=== PATIENT | female | born 1950 | race Caucasian/White ===

== ENCOUNTER → 2024-07-23 | Outpatient (CLI) | payer MEDICARE, MEDICAID, SELFPAY ==
--- NOTE | 2024-07-23 13:45 | XR_ITS ---
Examination: Carotid arterial duplex scan, ultrasound. Date and time of exam: July 23, 2024 1326 hours INDICATIONS: Dizziness and syncopal episodes beginning one month ago Technique: Multiple sonographic images have been obtained of the carotid arteries and vertebral arteries, B-mode/grayscale imaging and Doppler spectral analysis and color flow Peak systolic and diastolic velocities have been recorded. Systolic diastolic ratios have been calculated. Findings: Right peak systolic velocities: Distal internal carotid artery peak systolic velocity is 0.8 M/sec Proximal internal carotid artery peak systolic velocity is 0.6 M/sec Carotid bifurcation peak systolic velocity is 0.9 M/sec External carotid artery peak systolic velocity is 1.2 M/sec Vertebral artery flow is antegrade. Left peak systolic velocities: Distal internal carotid artery peak systolic velocity is 0.9 M/sec Proximal internal carotid artery peak systolic velocity is 0.7 M/sec Carotid bifurcation peak systolic velocity is 0.7 M/sec External carotid artery peak systolic velocity is 1.1 M/sec Vertebral artery flow is antegrade Doppler waveform analysis demonstrates no spectral broadening Impression: Right internal carotid artery demonstrates 0-10% stenosis. Left internal carotid artery demonstrates 0-10% stenosis.
== END | disposition home or self-care (01) ==
LOC: CDIM 13:09
PROVIDERS: Referring Provider Physician Assistant Medical; Visit Provider Physician Assistant Medical
DX: R55 Syncope and collapse (principal)
CPT/HCPCS: 93880

== ENCOUNTER → 2024-07-31 | Outpatient (CLI) | payer MEDICARE, MEDICAID, SELFPAY ==
--- NOTE | 2024-07-31 12:00 | XR_ITS ---
Examination: Bone densitometry Date and time of exam:July 31, 2024 1133 hours INDICATIONS: Menopause age 51 smoking history 56 years vitamin D 3 years Technique: Lumbar spine and hip total bone mineralization values of an calculated. Peak reference and age match control results have been displayed. Findings: Lumbar spine total bone mineralization is0.950 gm/cm2. This is 0.9 standard deviations below peak reference. This is 1.5 standard deviations above age-matched controls. Hip total bone mineralization is 0.823 gm/cm2 This is 1.0 standard deviations below peak reference. This is 0.8 standard deviations above age-matched controls Impression: There is normal mineralization based on lumbar spine measurements. There is osteopenia based on hip measurements Lumbar mineralization is increase 0.7% compared with September 03, 2018 Hip mineralization is increase 0.3% compared with September 03, 2018
== END | disposition home or self-care (01) ==
LOC: CDIM 11:35
PROVIDERS: PCP Physician Assistant Medical; Referring Provider Physician Assistant Medical; Visit Provider Physician Assistant Medical
DX: Z13.820 Encounter for screening for osteoporosis (principal); M85.88 Other specified disorders of bone density and structure, other site
CPT/HCPCS: 77080

== ENCOUNTER 2024-08-02 17:16 | Inpatient (IN) | payer MEDICARE, MEDICAID, SELFPAY ==
[2024-08-02] VITALS (16 sets, daily range): BP systolic 99–182; BP diastolic 61–97; PULSE 62–88; RESP 13–97; TEMP 36.3–37.1; O2SAT 81–98; BMI 28.6
--- NOTE | 2024-08-02 17:36 | XR_ITS ---
Examination: CTA carotids with intravenous contrast CTA brain, head with intravenous contrast. 2-D sagittal, coronal reconstructions. 3-D reconstructions. Exam date and time: August 02, 2024 1754 hrs. Indications: Stroke alert, onset focal neurologic deficit today CTDI: vol (mGy) 24.3 DLP: (mGycm) 870 Technique: Multiple CTA axial brain, head carotid images post intravenous contrast injection 100 cc, [id number]. 2-D sagittal, coronal reconstructions. 3-D reconstructions, 3-D post processing including vascular maximum intensity projection images. Low dose protocols were performed. One or more of the following dose reduction techniques were used; automated exposure control, adjustment of the mA and/or KV according to patient size, use of iterative reconstruction technique. Findings: No significant stenoses common carotid arteries carotid bifurcations or internal carotid arteries Dominant right vertebral artery with no critical stenoses No cerebral large vessel arterial occlusions or thrombus Impression: No significant neck arterial stenoses No cerebral large vessel arterial occlusions or thrombus
--- NOTE | 2024-08-02 17:36 | EKG_ITS ---
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
--- NOTE | 2024-08-02 17:36 | XR_ITS ---
Examination: CT brain head without contrast. 2-D sagittal coronal reconstructions Date and time of exam:August 02, 2024 1746 hrs. Indications: Stroke alert, onset focal neurologic deficit today CTDI: vol (mGy):46.6 DLP: (mGycm):938 Technique: Multiple CT axial sections of the brain have been obtained, 5 mm slice thickness. Contrast has not been administered. 2-D sagittal, coronal reconstructions have been obtained Low dose protocols were performed. One or more of the following dose reduction techniques were used; automated exposure control, adjustment of the mA and/or KV according to patient size, use of iterative reconstruction technique. Findings: No significant ventricular enlargement. Intra-axial or extra-axial hemorrhage density is not seen. No mass effect or midline shift Basal cisterns are not remarkable. Fourth ventricle is midline. Cranial vault intact. Impression: Negative for acute hemorrhage, mass effect or midline shift
[2024-08-02 17:47] LABS: Basophils # (Auto) 0.1 Thou/mm3 (0.0-0.2); Basophils % (Auto) 1 % (0-2.5); Eosinophils # (Auto) 1.7 Thou/mm3 (0.0-0.5); Eosinophils % (Auto) 16 % (0-10); Hematocrit 42.3 % (36.0-46.0); Hemoglobin 14.1 g/dL (12.0-16.0); Immature Granulocytes % (Auto) 0 % (0-0); Immature Granulocytes Auto 0.03 Thou/mm3 (0.00-0.00); Lymphocytes # (Auto) 3.5 Thou/mm3 (1.0-4.8); Lymphocytes % (Auto) 33 % (10-50); Mean Corpuscular HGB Conc 33.3 g/dl (31.0-37.0); Mean Corpuscular Hemoglobin 30.5 pg (25.0-35.0); Mean Corpuscular Volume 91 fL (80-100); Monocytes # (Auto) 0.5 Thou/mm3 (0.0-0.8); Monocytes % (Auto) 5 % (0-12); Neutrophils # (Auto) 4.8 Thou/mm3 (1.8-7.7); Neutrophils % (Auto) 45 % (37-80); Nucleated Red Blood Cell % 0 /100 WBC (0); Platelet Count 246 Thou/mm3 (140-440); RDW Standard Deviation 47.7 fL (36.4-46.3); Red Blood Count 4.63 Miln/mm3 (4.00-5.20); White Blood Count 10.7 Thou/mm3 (3.6-11.0)
--- NOTE | 2024-08-02 17:51 | EDNOTE_ITS ---
<Statement entered by Shania Minaya MD - 08/13/24 17:39> As co-signing physician, I was present and available for consult prn. I concur with the plan and care as documented by the midlevel provider. ED General RME/HPI General Chief complaint: Syncope / Near Syncope Stated complaint: FELT LIKE BLACKED OUT AND WENT TO GROUND, [facility] Time Seen by Provider: 08/02/24 17:44 Arrival date/time: 08/02/24 17:16 RME / HPI RME / HPI narrative: 74-year-old female patient with significant history of hypertension, hypothyroidism, was brought in by friend for evaluation regarding near syncope. Patient was going to the bathroom, was about to put her teeth, DNR, and suddenly developed sudden onset of right-sided headache, and almost collapsed. Called a friend and was noted to have a slight slurring of speech. Incident happened about 1 hour prior to ER visit. Related Data Home Medications ?Medication ?Instructions ?Recorded ?Confirmed lisinopril 10 mg tablet 5 mg PO DAILY 07/20/18 02/27/23 omeprazole 40 mg capsule,delayed 20 mg PO QDAY 07/20/18 02/27/23 release atorvastatin 40 mg tablet 80 mg PO QDAY 11/24/20 02/27/23 levothyroxine 25 mcg capsule 12.5 mcg PO QDAY 01/18/23 02/27/23 omega-3 fatty acids-fish oil 684 1 cap PO BID 01/18/23 02/27/23 mg-1,200 mg capsule,delayed release aspirin 81 mg tablet 81 mg PO QDAY 01/19/23 02/27/23 cholecalciferol (vitamin D3) 25 25 mcg PO QDAY 01/19/23 02/27/23 mcg (1,000 unit) chewable tablet (Vitamin D3) cranberry 1,000 mg capsule 1,200 mg PO QDAY 01/19/23 02/27/23 esomeprazole magnesium 20 mg 20 mg PO QDAY 01/19/23 02/27/23 capsule,delayed release Previous Rx's ?Medication ?Instructions ?Recorded ciprofloxacin HCl 500 mg tablet 500 mg PO BID #10 tabs 02/07/23 (Cipro) metronidazole 500 mg tablet 500 mg PO BID #10 tabs 02/07/23 Allergies Allergy/AdvReac Type Severity Reaction Status Date / Time nitrofurantoin Allergy Severe Diarrhea Verified 10/02/23 10:04 [From Macrobid] Penicillins Allergy Severe HIVES Verified 10/02/23 10:04 Sulfa (Sulfonamide Allergy Severe ABD PAIN Verified 10/02/23 10:04 Antibiotics) Review of Systems Review of Systems Narrative Review of Systems: Review of system reviewed and within normal limits except mentioned in HPI ED Exam Narrative Physical exam: VITAL SIGNS: Reviewed. GENERAL APPEARANCE: Alert and interactive, follows commands, no acute distress, HEAD AND FACE: Non-traumatic. ENT: PERRL, pink conjunctivitis, eyelid no trauma, Mucous membrane moist. NECK: Supple, nontender, no nuchal rigidity. CHEST: No tenderness, no crepitus, no paradoxical movement, no retractions. LUNGS: Clear, well ventilated, symmetric, no rales, no wheezing, no ronchi, no stridor, good breath sounds bilaterally. HEART: Regular rate, regular rhythm, no murmur, no gallops. ABDOMEN: Soft, positive bowel sounds, nondistended, no guarding, nontender, no rebound, no masses, RECTAL: Deferred. GENITAL: Deferred. NEUROLOGICAL: Gross motor function intact sensory function intact, Appropriate for age. MUSCULOSKELETAL: low back nontender, full range of motion. EXTREMITIES: Nontender, full range of motion. SKIN: Color pink, dry, no rash, no lacerations, no abrasions, no contusions. LYMPHATICS: Deferred. 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 NOW Care 08/02/24 17:36 Active Continuous Pulse Oximetry NOW Care 08/02/24 17:36 Completed Decision to Admit X1 Care 08/02/24 19:48 Active EKG (ED ONLY) *Do not use* NOW Care 08/02/24 17:36 Completed In and Out Catheter NEEDED Care 08/02/24 17:36 Active Insert IV NOW Care 08/02/24 17:36 Active NIH Stroke Scale now Care 08/02/24 17:36 Active NPO NOW Care 08/02/24 17:36 Active Nurse Swallow Screen x1 Care 08/02/24 17:36 Active Consult to Neurology / Tele-Neurology Routine Cons 08/02/24 17:[address] angio stroke protocol Stat Exams 08/02/24 17:[address] stroke protocol Stat Exams 08/02/24 17:36 Completed EKG (ED Only) Stat Exams 08/02/24 17:36 Draft CBC Stat Lab 08/02/24 17:28 Completed Comprehensive Metabolic Panel Stat Lab 08/02/24 17:28 Completed Drug Screen,Urine Stat Lab 08/02/24 18:42 Completed HCG Titer if Positive Stat Lab 08/02/24 17:28 Completed Magnesium Stat Lab 08/02/24 17:28 Completed Partial Thromboplastin Time Stat Lab 08/02/24 17:28 Completed Prothrombin Time with INR Stat Lab 08/02/24 17:28 Completed Troponin I Stat Lab 08/02/24 17:28 Completed Urinalysis Stat Lab 08/02/24 18:42 Completed Urine Culture Stat Lab 08/02/24 18:42 Received Aspirin Med 08/02/24 18:11 Discontinued 325 mg PO X1 ONE Ondansetron Inj [Zofran Inj] Med 08/02/24 17:36 Active 4 mg IV Q4HR PRN Oxygen Delivery NOW RT 08/02/24 17:36 Active Vital Signs Vital signs: Vital Signs Temperature 98.1 F 08/02/24 17:30 Pulse Rate 87 08/02/24 17:30 Respiratory Rate 18 08/02/24 17:30 Blood Pressure 114/62 08/02/24 17:30 Pulse Oximetry (%) 98 08/02/24 17:30 Oxygen Delivery Method Room Air 08/02/24 17:30 [facility] Patient data External records reviewed:: None Clinical information provided by:: patient Social determinants that could affect healthcare access:: none Patient has the following chronic illnesses:: Hypertension How is presenting disease/condition affected by chronic disease/condition?: e xacerbated by Evaluation data The following diagnostics were reviewed and interpreted by me:: lab results Lab and/or radiology exams considered but not ordered:: None Interpretation Summary: Laboratory workup all came back unremarkable. CT scan of the head came back unremarkable CT angiogram of the head and neck also came back unremarkable. Medications Medications considered but not ordered:: None Medication administrations:: Medication Administration History Ondansetron HCl (Ondansetron Inj 2 Mg/Ml Inj 2 Ml) 4 mg IV Q4HR PRN PRN Reason: NAUSEA OR VOMITING Stop: 09/01/24 17:35 Discontinued Medications Aspirin (Aspirin 325 Mg Tablet) 325 mg PO X1 ONE Stop: 08/02/24 18:12 Aspirin Zofran Consultations Consultation(s) initiated? (list below): No Consultation #1 (Physician, Specialty, Details): None Diagnosis Differential Diagnosis ED Complaint MDM: Strokelike symptoms, near-syncope, vasovagal syncope, Most likely diagnosis given after review of the tests above:: Strokelike symptoms Admission Indicated Admission indicated?: indicated Explain why admission is indicated or not indicated:: Patient is to be admitted for further management. Admission Request Was there a request for admission?: Yes Admission Attestation Admission request attestation: Discussed case with [Dr Cobian] from Hospitalist service regarding admission. Discussed patients ED course, exam findings, labs, and radiology results. The Hospitalist [agrees ] to accept the patient for admission. Disposition Plan Disposition Plan: Admit Medical Decision Making MDM Narrative MDM Narrative: 74-year-old female patient with significant history of hypertension, hypothyroidism, was brought in by friend for evaluation regarding near syncope. Patient was going to the bathroom, was about to put her teeth, DNR, and suddenly developed sudden onset of right-sided headache, and almost collapsed. Called a friend and was noted to have a slight slurring of speech. Incident happened about 1 hour prior to ER visit. Stroke alert was initiated right away. On initial evaluation Spoke with teleneurologist who recommended admission for further workup for stroke. Recommendation is aspirin [address] Spoke with Dr. Cobian , hospitalist, who admitted the patient. Differential Diagnosis Differential Diagnosis: Strokelike symptoms, near-syncope, vasovagal syncope, Lab Data 08/02/24 17:28 08/02/24 17:28 Labs: Lab Results 08/02/24 08/02/24 Range/Units 17:28 18:42 WBC 10.7 (3.6-11.0) Thou/mm3 RBC 4.63 (4.00-5.20) Miln/mm3 Hgb 14.1 (12.0-16.0) g/dL Hct 42.3 (36.0-46.0) % MCV 91 (80-100) fL MCH 30.5 (25.0-35.0) pg MCHC 33.3 (31.0-37.0) g/dl RDW Std Deviation 47.7 H (36.4-46.3) fL Plt Count 246 (140-440) Thou/mm3 Neut % (Auto) 45 (37-80) % Lymph % (Auto) 33 (10-50) % [place] % (Auto) 5 (0-12) % Eos % (Auto) 16 H (0-10) % Baso % (Auto) 1 (0-2.5) % Neut # (Auto) 4.8 (1.8-7.7) Thou/mm3 Lymph # (Auto) 3.5 (1.0-4.8) Thou/mm3 [place] # (Auto) 0.5 (0.0-0.8) Thou/mm3 Eos # (Auto) 1.7 H (0.0-0.5) Thou/mm3 Baso # (Auto) 0.1 (0.0-0.2) Thou/mm3 Immature Gran # (Auto) 0.03 H (0.00-0.00) Thou/mm3 Absolute Nucleated RBC 0.00 (0.00-0.00) Thou/mm3 Immature Gran % 0 (0-0) % Nucleated RBC % 0 (0) /100 WBC PT 10.8 (9.0-12.2) Seconds INR 1.0 (0.9-1.3) APTT 27.1 (22.0-36.0) Seconds Sodium 139 (136-145) mMol/L Potassium 3.9 (3.4-5.1) mMol/L Chloride 104 (98-107) mMol/L Carbon Dioxide 28.0 (20.0-31.0) mMol/L Anion Gap 7 (7-16) BUN 13 (9-23) mg/dL Creatinine 1.2 (0.6-1.3) mg/dL Estim Creat Clear Calc 33.1 L (>60) mL/min eGFR 47 L (60 - ) See Note BUN/Creatinine Ratio 11 L (12-20) Ratio Glucose 96 (74-106) mg/dL Calculated Osmolality 277 (275-295) Calcium 10.0 (8.3-10.6) mg/dL Corrected Calcium 10.0 (8.5-10.1) mg/dL Magnesium 1.8 (1.6-2.6) mg/dL Total Bilirubin 0.4 (0.3-1.2) mg/dL AST 26 (0-34) U/L ALT 28 (10-49) U/L Alkaline Phosphatase 98 (46-116) U/L Troponin I < 0.020 (0.0-0.045) ng/mL Total Protein 7.6 (5.7-8.2) gm/dL Albumin 4.9 H (3.4-4.8) gm/dL Globulin 2.7 (2.3-3.5) gm/dL Albumin/Globulin Ratio 1.8 (1.2-2.2) Ur Collection Type Clean Catch Urine Color Colorless A (Lt Yel-Yel) Urine Clarity Clear (Clear/Hazy) Urine pH 6.0 (5.0-7.0) Ur Specific [place] 1.020 (1.001-1.035) Urine Protein Negative (Neg - Trace) Urine Glucose (UA) Negative (Negative) Urine Ketones Negative (Negative) Urine Blood Negative (Negative) Urine Nitrite Negative (Negative) Urine Bilirubin Negative (Negative) Urine Urobilinogen (Auto) Negative (0.0-1.0) mg/dL Ur Leukocyte Esterase Positive (Negative) Urine RBC 3 (0-3) /hpf Urine WBC 21 H (0-5) /hpf Ur Squamous Epith Cells 3 (0-5) /hpf Urine Bacteria None (None) Urine Opiates Screen Negative (Negative) Urine Fentanyl Screen Negative (Negative) Ur Barbiturates Screen Negative (Negative) U Amphetamin/Meth Scrn Negative (Negative) U Benzodiazepines Scrn Negative (Negative) U Cocaine Metab Screen Negative (Negative) U Marijuana (THC) Screen Negative (Negative) HCG (Qual) Negative Discharge Plan Plan Patient Disposition: Admit Acute Care w/in Hospital Prescriptions/Referrals Prescriptions/Med Rec: No Action lisinopril 10 mg tablet 5 mg PO DAILY omeprazole 40 mg capsule,delayed release(DR/EC) 20 mg PO QDAY atorvastatin 40 mg Tablet 80 mg PO QDAY [place] 3 Fish Oil 684-1,200 mg Capsule,Delayed Release(Dr/Ec) 1 cap PO BID levothyroxine 25 mcg Capsule 12.5 mcg PO QDAY aspirin 81 mg Tablet 81 mg PO QDAY esomeprazole magnesium 20 mg Capsule,Delayed Release(Dr/Ec) 20 mg PO QDAY cranberry 1,000 mg Capsule 1,200 mg PO QDAY Rx Instructions: administer with meals cholecalciferol (vitamin D3) [Vitamin D3] 25 mcg (1,000 unit) Tablet,Chewable 25 mcg PO QDAY ciprofloxacin HCl [Cipro] 500 mg tablet 500 mg PO BID Qty: 10 0RF metronidazole 500 mg tablet 500 mg PO BID Qty: 10 0RF Referrals: Esther Cha PA-C [Primary Care Provider] - In 1 week Problem List Clinical Impression: Stroke-like symptoms Patient/Caregiver Discharge Instructions Print Language: Luxembourger Stand Alone Forms: Taty Award Info., Patient Portal Info Letter
[2024-08-02 18:08] LABS: Partial Thromboplastin Time 27.1 Seconds (22.0-36.0); Prothrombin Time 10.8 Seconds (9.0-12.2)
--- NOTE | 2024-08-02 18:08 | PD.TNEURO ---
Tele Neuro Consultation Consultation Date 08/02/24 Most Recent Vital Signs Last Vital Signs Temp 97.4 F 08/02/24 17:31 Pulse 83 08/02/24 17:31 Resp 17 08/02/24 17:31 BP 182/91 H 08/02/24 17:31 Pulse Ox 98 08/02/24 17:31 O2 Del Method Room Air 08/02/24 17:31 Laboratory-Coagulation Panel PT 10.8 Seconds (9.0-12.2) 08/02/24 17:28 INR 1.0 (0.9-1.3) 08/02/24 17:28 APTT 27.1 Seconds (22.0-36.0) 08/02/24 17:28 Consultation Narrative [facility] Tele[facility] Patient Name:???eliot perez Date of :???1950 Identification Number:??? Date of Service:???08/02/2024 17:29:44 Diagnosis:?R55 - Syncope (blackout, fainting, vasovagal attack) Impression: ?74F with PMHx hypothyroidism, TIA, HLD, presents due to near syncopal episode while putting her teeth in. She tells me she got her teeth in, and then could feel herself going down, things going black, she grabbed the sink. Finally the sensation went away, afterwards she had the shakes really badly. Then the right side of her head went numb, this is still present but comes and goes. No involvement of any extremity (numbness nor weakness), she does think her speech was slurred. Speech is better now. This has never happened to her before. States she does not take aspirin. On exam she does not DDX includes orthostatic hypotension, secondary headache, TIA, acute ischemic stroke. Our recommendations are outlined below. Recommendations: ? Stroke/Telemetry Floor ? Neuro Checks ? Bedside Swallow Eval ? DVT Prophylaxis ? Head of Bed 30 Degrees ? Euglycemia and Avoid Hyperthermia (PRN Acetaminophen) ? Initiate or continue Aspirin 325 MG daily ?MR brain w/w/o; orthostatic vital signs Sign Out: ? Discussed with Emergency Department Provider Advanced Imaging:CTA Head and Neck Completed. LVO:No Patient in not a candidate for LAINE Metrics: Last Known Well: 08/02/2024 16:40:00 Dispatch Time: 08/02/2024 17:29:44 Arrival Time: 08/02/2024 17:16:00 Initial Response Time: 08/02/2024 17:34:00Symptoms: near syncopal episode, R face numbness, slurred speech. Initial patient interaction: 08/02/2024 17:46:06 NIHSS Assessment Completed: 08/02/2024 17:52:52Patient is not a candidate for Thrombolytic. Thrombolytic Medical Decision: 08/02/2024 17:52:54Patient was not deemed candidate for Thrombolytic because of following reasons: Stroke severity too mild (non-disabling) . I personally Reviewed the CT Head and it Showed no acute changes Primary Provider Notified of Diagnostic Impression and Management Plan on: 08/02/2024 18:08:18 History of Present Illness:Patient is a 74 year old Female. Patient was brought by private transportation with symptoms of near syncopal episode, R face numbness, slurred speech. 74F with PMHx hypothyroidism, TIA, HLD, presents due to near syncopal episode while putting her teeth in. She tells me she got her teeth in, and then could feel herself going down, things going black, she grabbed the sink. Finally the sensation went away, afterwards she had the shakes really badly. Then the right side of her head went numb, this is still present but comes and goes. No involvement of any extremity (numbness nor weakness), she does think her speech was slurred. Speech is better now. This has never happened to her before. States she does not take aspirin. ? Past Medical History: ?Hyperlipidemia ?There is no history of Stroke Medications: No Anticoagulant use? No Antiplatelet use Reviewed EMR for current medications Allergies:? Reviewed Social History: Smoking: Yes Family History: There is no family history of premature cerebrovascular disease pertinent to this consultation ROS : 14 Points Review of Systems was performed and was negative except mentioned in HPI. Past Surgical History: There Is No Surgical History Contributory To Today?s Visit ? Examination: BP(114/62),?Pulse(77), 1A: Level of Consciousness - Alert; keenly responsive?+ 0 1B: Ask Month and Age - Both Questions Right?+ 0 1C: Blink Eyes & Squeeze Hands - Performs Both Tasks?+ 0 2: Test Horizontal Extraocular Movements - Normal?+ 0 3: Test Visual [place] - No Visual Loss?+ 0 4: Test Facial Palsy (Use Grimace if Obtunded) - Normal symmetry?+ 0 5A: Test Left Arm Motor Drift - No Drift for 10 Seconds?+ 0 5B: Test Right Arm Motor Drift - No Drift for 10 Seconds?+ 0 6A: Test Left Leg Motor Drift - No Drift for 5 Seconds?+ 0 6B: Test Right Leg Motor Drift - No Drift for 5 Seconds?+ 0 7: Test Limb Ataxia (FNF/Heel-[place]man) - No Ataxia?+ 0 8: Test Sensation - Normal; No sensory loss?+ 0 9: Test Language/Aphasia - Normal; No aphasia?+ 0 10: Test Dysarthria - Normal?+ 0 11: Test Extinction/Inattention - No abnormality?+ 0 NIHSS Score:?0 Pre-Morbid Modified [place] Scale:2 Points = Slight disability; unable to carry out all previous activities, but able to look after own affairs without assistance Spoke with :?ED physician This consult was conducted in real time using interactive audio and video technology. Patient was informed of the technology being used for this visit and agreed to proceed. Patient located in hospital and provider located at home/office setting. Patient is being evaluated for possible acute neurologic impairment and high probability of imminent or life-threatening deterioration. I spent total of 35 minutes providing care to this patient, including time for face to face visit via telemedicine, review of medical records, imaging studies and discussion of findings with providers, the patient and/or family. Dr Rose Loza [facility] For Inpatient follow-up with [facility] physician please call [facility] at . As we are not an outpatient service for any post hospital discharge needs please contact the hospital for assistance. If you have any questions for the [facility] physicians or need to reconsult for clinical or diagnostic changes please contact us via [facility] at .
[2024-08-02 18:12] LABS: HCG Titer if Positive Negative
[2024-08-02 18:13] LABS: Troponin I < 0.020 ng/mL (0.0-0.045)
[2024-08-02 18:14] LABS: Alanine Aminotransferase 28 U/L (10-49); Albumin, Serum 4.9 gm/dL (3.4-4.8); Albumin/Globulin Ratio 1.8 (1.2-2.2); Alkaline Phosphatase 98 U/L (46-116); Anion Gap 7 (7-16); Aspartate Amino Transferase 26 U/L (0-34); BUN/Creatinine Ratio 11 Ratio (12-20); Bilirubin,Total 0.4 mg/dL (0.3-1.2); Blood Urea Nitrogen 13 mg/dL (9-23); Chloride 104 mMol/L (98-107); Creatinine (Component) 1.2 mg/dL (0.6-1.3); Estimated Creatinine Clearance 33.1 mL/min (>60); Globulin 2.7 gm/dL (2.3-3.5); Glucose 96 mg/dL (74-106); Magnesium 1.8 mg/dL (1.6-2.6); Osmolality,Calculated 277 (275-295); Potassium 3.9 mMol/L (3.4-5.1); Sodium 139 mMol/L (136-145); Total Protein 7.6 gm/dL (5.7-8.2); eGFR 47 See Note
[2024-08-02 18:58] LABS: Collection Type, Urine Clean Catch
[2024-08-02 19:02] LABS: Bilirubin,Urine Negative (Negative); Blood,Urine Negative (Negative); Clarity,Urine Clear (Clear/Hazy); Color,Urine Colorless (Lt Yel-Yel); Glucose, Urine Negative (Negative); Ketones,Urine Negative (Negative); Leukocyte Esterase,Urine Positive (Negative); Nitrite,Urine Negative (Negative); Protein,Urine Negative (Neg - Trace); RBC,Urine 3 /hpf (0-3); Squamous Epithelial Cell,Urine 3 /hpf (0-5); Urobilinogen,Urine Negative mg/dL (0.0-1.0); WBC,Urine 21 /hpf (0-5)
[2024-08-02 19:07] LABS: Amphetamine/Methamp Scrn,U Negative (Negative); Barbiturate Screen,Urine Negative (Negative); Benzodiazepines Screen,Urine Negative (Negative); Benzoylecgonine Screen, Ur Negative (Negative); Fentanyl Screen,Urine Negative (Negative); Opiate Screen,Urine Negative (Negative); THC Screen,Urine Negative (Negative)
--- NOTE | 2024-08-02 19:31 | PRELIM_ITS ---
CT angiogram of the head and neck with intravenous contrast (axial sections with sagittal and coronal reformats) August 02, 2024 at 1754 hours Clinical History: Focal neuro deficit, stroke suspected.C omparison: No prior study available for comparison at the time of interpretation.Findings:Head: There are mild atheromatous calcifications of the intracranial internal carotid arteries with mild irregul ar stenosis. The middle and anterior cerebral arteries are patent with mild atheromatous changes. The right vertebral artery is dominant. Patent small posterior communicating arteries are seen bilateral ly. The right posterior cerebral artery is relatively small in caliber and demonstrates mild atheroma tous changes. The left vertebral artery is patent. No evidence of a large vessel occlusion, critical stenosis or aneurysm.Neck: The aortic arch to the extent visualized as well as the origins of the rig ht brachiocephalic, left common carotid, and left subclavian arteries are patent demonstrating mild a theromatous changes. The common carotid arteries, and internal and external carotid arteries are garcía nt demonstrating mild atheromatous changes. There are calcified and soft plaques at the carotid bulb and origin of the internal carotid arteries bilaterally with mild stenosis. The origins of the verteb ral arteries demonstrate atheromatous changes with mild stenosis. The right vertebral artery is domin ant. No evidence of critical stenosis, dissection or aneurysm. There is biapical pleural thickening. Degenerative changes are seen in the spine. There is mild reversal of the cervical lordosis.Impressio n: Head: Mild atheromatous changes of the intracranial arteries without large vessel occlusion, criti buster stenosis or aneurysm.Neck: Atheromatous changes at bilateral carotid bulbs, internal carotid silviano dannie with mild stenosis. No vascular occlusion or critical stenosis. Other findings as described. Rep ort Electronically Signed By: Kwasi Cerda 08/02/2024 7:30:39 PM [EST]
[2024-08-02] MEDS: Aspirin 325 MG TABLET PO (19:48)
--- NOTE | 2024-08-02 20:11 | ECHO_ITS ---
Transthoracic Echo Report Ht (in): 59 Wt (lb): 142 Exam Location: Echo Lab Status: Emergency Ships Or Barges Loader: Nivia De Luna Indications: Procedure Performed: BP: 103 / 61 HR: 67 Technical Quality: Technically difficult study MEASUREMENTS (Male / Female) Normal Values 2D ECHO LV Diastolic Diameter PLAX 2.8 cm 4.2 - 5.9 / 3.9 - 5.3 cm LV Systolic Diameter PLAX 2.2 cm IVS Diastolic Thickness 0.9 cm 0.6 - 1.0 / 0.6 - 0.9 cm LVPW Diastolic Thickness 1.1 cm 0.6 - 1.0 / 0.6 - 0.9 cm LV Relative Wall Thickness 0.7 LVOT Diameter 1.5 cm Aortic Root Diameter 2.4 cm LA Volume Index 21.8 cm?/m? 16 - 28 cm?/m? DOPPLER AV Peak Velocity 152.5 cm/s AV Peak Gradient 9.3 mmHg AV Mean Gradient 5.5 mmHg AV Velocity Time Integral 33.7 cm LVOT Peak Velocity 148.0 cm/s LVOT Peak Gradient 8.8 mmHg LVOT Velocity Time Integral 28.0 cm LVOT Cardiac Index 1996.3 cm?/min?m? AV Area Cont Eq vti 1.5 cm? AV Area Cont Eq pk 1.7 cm? MV Area PHT 3.6 cm? MR Peak Velocity 391.0 cm/s MR Peak Gradient 61.2 mmHg Mitral E Point Velocity 54.3 cm/s Mitral A Point Velocity 96.5 cm/s Mitral E to A Ratio 0.6 LV E' Lateral Velocity 7.6 cm/s Mitral E to LV E' Lateral Ratio 7.1 LV E' Septal Velocity 5.1 cm/s Mitral E to LV E' Septal Ratio 10.6 FINDINGS Left Ventricle Normal left ventricular size, wall thickness, systolic function with no obvious regional wall motion abnormalities. Normal left ventricular diastolic filling pattern for age. The ejection fraction is v isually estimated at 50-55 %. Right Ventricle The right ventricle is normal in size and systolic function. Left Atrium The left atrium is normal by two-dimensional, color flow and Doppler imaging with no structural abnormalities, no thrombus formation present. Right Atrium The right atrium is normal by two-dimensional imaging, color flow and Doppler imaging with no struct ural abnormalities, no thrombus formation present. Atrial Septum The interatrial septum appears normal with no evidence of a shunt. Aorta The aorta is normal by two-dimensional, color flow and Doppler interrogation. Mitral Valve The mitral valve is normal by two-dimensional, color flow and Doppler interrogation. There is mild m itral valve regurgitation, stenosis or prolapse. Aortic Valve The aortic valve is trileaflet and normal by two-dimensional, color flow and Doppler interrogation. There is no significant aortic valve regurgitation. Tricuspid Valve The tricuspid valve is normal by two-dimensional, color flow and Doppler interrogation. There is no significant tricuspid valve regurgitation. Pulmonic Valve The pulmonic valve is not well visualized. There is no significant pulmonic valve regurgitation. Vessels The pulmonary artery appears normal. The inferior vena cava pulmonary and hepatic veins appear mack l. Pericardium The pericardium is normal by two-dimensional imaging. There is no significant pericardial effusion. CONCLUSIONS Indication: Stroke Bubble study negative for any PFO or ASD. Consider TTE if clinical suspicion is high. Normal LV size, wall thickness and normal LV function with estimated EF 50-55 %. Stage I diastolic dysfunction RV is normal in size and systolic function. Trace MR and TR Bong Ventura (Electronically Signed) Final Date: 05 August 2024 00:27
--- NOTE | 2024-08-02 20:24 | PD.RESHP ---
Documentation for date of: 08/02/24 [facility] History of Present Illness History of present illness: The patient is a 74-year-old female with a past medical history of hypertension, hyperlipidemia, hypothyroidism who presented to the ED on 08/02/2024 after having a near syncopal episode about an hour prior to ER. Per the patient, she had been cooking in the kitchen when in the bathroom to put on her dentures after which she started to have a blackout and felt herself falling, which made her grabbed the sink. Was happening for about 40 minutes afterwards the sensation went away, but patient reports that shortly after she had generalized tremors, described as having the shakes . She denies any nausea, diaphoresis or lightheadedness during this episode, additionally she denied any extremity numbness or weakness, she feels like her speech was slurred initially but resolved itself. She endorsed right-sided headache numbness that has persisted. At baseline, she has blurriness of vision in the right eye due to Esotropia in that eye. She had a similar symptom in March while she was driving where she completely blacked out. Following this episode, she had presented to her PCP who did a carotid ultrasound 10days ago, followed by an EEG and had scheduled her for an MRI with contrast to be done in July after [place]. ED course: In the ED, patient was afebrile hypertensive with a blood pressure of 182/91, saturating 96% on room air. Based on patient's presenting symptoms, stroke alert was called and stroke protocol initiated. Head CT was done which was negative for acute hemorrhage, mass effect or midline shift. Teleneuro was consulted and evaluated patient, NIHSS score-0. Recommended to admit patient for TIA versus syncope workup. CBC was unremarkable and CMP only significant for EGFR 47 UA was negative as well as U tox. The patient is being admitted for syncope versus TIA workup. PMHx-as above PSHx-cataract surgery Home meds-Lipitor, levothyroxine, vitamin D3 omega-3, cranberry Review of Systems Review of Systems Narrative Review of Systems: GENERAL: Denies fevers/chills or diaphoresis. HEENT: Admits headache and blurriness of vison in the right eye NEURO: Denies unusual weakness or difficulty speaking. CARDIO: Denies chest pain or palpitations. PULM: Denies SOB, coughing, or wheezing. GI: Denies abdominal pain, N/V/C/D/reflux/gas, bright red blood per rectum or melena. Reports having BMs. URO: Denies burning/itching/pain/urinary changes. MSK/EXT/SKIN: Denies joint/skeletal/muscle pain, issues/changes in upper or lower extremities, itchiness, or superficial pain. PSYCH: Cooperative, pleasant mood & affect. Exam Vital Signs Temp Pulse Resp BP Pulse Ox O2 Del Method 98.4 F 71 18 175/88 H 98 Room Air 08/02/24 18:30 08/02/24 18:32 08/02/24 18:32 08/02/24 18:30 08/02/24 18:30 08/02/24 18:30 Narrative Exam GENERAL: AAOX3. NEURO: [employer] grossly intact, 5/5 strength in all extremities, no numbness or loss of sensation. Normal cnvomh-mt-hagi and faeo-hw-bnlr. No nystagmus noted, reflexes intact bilaterally, negative babinski. HEENT: Moist mucosa. Eyes open, esotropia in right eye, pupils equal bilaterally. CARDIO: No chest pain on palpation. Heart RRR, no obvious murmurs. Unequal BP in both arms >30mmHg, pulse weaker on left arm PULM: No noted coughing/dyspnea. Lungs CTA B/L GI: Abdomen soft, nondistended, no pain on palpation. 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 SKIN/MSK/EXT: No wounds/rashes/edema/amputations, no pain on palpation. Pedal pulses present B/L. Results: Labs 08/02/24 17:28 08/02/24 17:28 Labs: Short CBC 08/02/24 Range/Units 17:28 WBC 10.7 (3.6-11.0) Thou/mm3 Hgb 14.1 (12.0-16.0) g/dL Hct 42.3 (36.0-46.0) % Plt Count 246 (140-440) Thou/mm3 BMP 08/02/24 17:28 Sodium 139 Potassium 3.9 Chloride 104 Carbon Dioxide 28.0 BUN 13 Creatinine 1.2 Glucose 96 Calcium 10.0 Cardiac Enzymes 08/02/24 Range/Units 17:28 Troponin I < 0.020 (0.0-0.045) ng/mL Liver Function 08/02/24 Range/Units 17:28 Total Bilirubin 0.4 (0.3-1.2) mg/dL AST 26 (0-34) U/L ALT 28 (10-49) U/L Alkaline Phosphatase 98 (46-116) U/L Albumin 4.9 H (3.4-4.8) gm/dL Urine 08/02/24 Range/Units 18:42 Urine Color Colorless A (Lt Yel-Yel) Urine Clarity Clear (Clear/Hazy) Urine pH 6.0 (5.0-7.0) Ur Specific Crowder 1.020 (1.001-1.035) Urine Protein Negative (Neg - Trace) Urine Glucose (UA) Negative (Negative) Quality Measures Quality Measures none Advance care planning discussed with:: patient Medications Home Medications and Allergies Home Medications ?Medication ?Instructions ?Recorded ?Confirmed ?Type lisinopril 10 mg tablet 5 mg PO DAILY 07/20/18 02/27/23 History omeprazole 40 mg capsule,delayed 20 mg PO QDAY 07/20/18 02/27/23 History release atorvastatin 40 mg tablet 80 mg PO QDAY 11/24/20 02/27/23 History levothyroxine 25 mcg capsule 12.5 mcg PO QDAY 01/18/23 02/27/23 History omega-3 fatty acids-fish oil 684 1 cap PO BID 01/18/23 02/27/23 History mg-1,200 mg capsule,delayed release aspirin 81 mg tablet 81 mg PO QDAY 01/19/23 02/27/23 History cholecalciferol (vitamin D3) 25 25 mcg PO QDAY 01/19/23 02/27/23 History mcg (1,000 unit) chewable tablet (Vitamin D3) cranberry 1,000 mg capsule 1,200 mg PO QDAY 01/19/23 02/27/23 History esomeprazole magnesium 20 mg 20 mg PO QDAY 01/19/23 02/27/23 History capsule,delayed release Allergies Allergy/AdvReac Type Severity Reaction Status Date / Time nitrofurantoin Allergy Severe Diarrhea Verified 10/02/23 10:04 [From Macrobid] Penicillins Allergy Severe HIVES Verified 10/02/23 10:04 Sulfa (Sulfonamide Allergy Severe ABD PAIN Verified 10/02/23 10:04 Antibiotics) Visit Medications Acetaminophen (Acetaminophen 325 Mg Tablet) 650 mg PO Q6H PRN PRN Reason: Pain 1-3 or Fever >100.3 Stop: 09/01/24 20:04 Aspirin (Aspirin 325 Mg Tablet) 325 mg PO QDAY [facility] Stop: 09/02/24 08:59 Atorvastatin Calcium (Atorvastatin Calcium 20 Mg Tablet) 80 mg PO HS [facility] Stop: 09/01/24 20:59 Levothyroxine Sodium (Levothyroxine Sodium 25 Mcg Tablet) 12.5 mcg PO ACBR [facility] Stop: 09/02/24 05:59 Ondansetron HCl (Ondansetron Inj 2 Mg/Ml Inj 2 Ml) 4 mg IV Q4HR PRN PRN Reason: NAUSEA OR VOMITING Stop: 09/01/24 17:35 Ondansetron HCl (Ondansetron Inj 2 Mg/Ml Inj 2 Ml) 4 mg IV Q6H PRN; Protocol PRN Reason: NAUSEA OR VOMITING Stop: 09/01/24 20:09 Pantoprazole Sodium (Pantoprazole 40 Mg Tablet) 40 mg PO QDAY [facility] Stop: 09/02/24 08:59 Tramadol HCl (Tramadol Hcl 50 Mg Tablet) 50 mg PO Q6HR PRN PRN Reason: PAIN SCALE 4-6 (Moderate Stop: 08/07/24 20:09 Discontinued Medications Aspirin (Aspirin 325 Mg Tablet) 325 mg PO X1 ONE Stop: 08/02/24 18:12 Last Admin: 08/02/24 19:48 Dose: 325 mg Heparin Sodium (Porcine) (Heparin Sod Inj 5000 Unit/Ml Vial) 5,000 unit SC Q12HR [facility] Stop: 08/16/24 20:59 Assessment & Plan Assessment Summary: The patient is a 6-year-old female with a past medical history of hypertension, hyperlipidemia, hypothyroidism who presented to the ED on 08/02/2024 with the primary syncopal episode. Stroke protocol was initiated and the patient was admitted for further workup. #Syncope #TIA versus vasovagal syncope Patient presented to an hour after having a near syncopal episode in the bathroom, she described as blackout and feeling of falling. This episode was followed shortly after by generalized tremors. She denied any weakness or numbness in extremities, felt like her speech was slurred but resolved in the ED. She also endorsed a dull right-sided headache and numbness that has persisted. The patient denies lightheadedness, she does have vision in the right eye which is a chronic symptom due to esotropia in that eye. She had a similar symptom in March when she was driving and completely blacked out. Following this, she presented to her PCP who did a carotid ultrasound and showed 0 to 10% stenosis in both carotids as well as an EEG. Teleneuro consulted in the ED, NIHSS score-0, head CT negative. EKG- sinus rhythm Plan: -Admit to telemetry -Orthostatic vitals -Head of bed elevation, 30 degrees -MRI with and without contrast -Echocardiogram -Aspirin 325 mg, as recommended by teleneuro -Continue atorvastatin 80 mg -TSH, T4 -Referral to physical therapy -Neurology consulted, appreciate recommendations #Inter arm difference in blood pressure Ddx: Subclavian steal, thoracic outlet syndrome, aortic coarctation Patient reports that she has always had a difference in blood pressure in both arms. Blood pressure on admission to the right arm was 164/86 on left arm 138/72. Pulse noted to be weaker on left. She denies numbness or weakness in that arm or any change in temperature, no pain in the arm or in the chest. No bruit heard on auscultation over subclavian Plan: -Consider further workup with CTA/MRA #History of hypertension #History of hyperlipidemia The patient has a history of hypertension hyperlipidemia, reports that she stopped taking her lisinopril a while back. She is on Lipitor 80 mg at bedtime. Plan: -Allow permissive hypertension for 24 hours -Continue Lipitor 80 mg #History of hypothyroidism The patient is on levothyroxine 50 mcg daily. She states that her thyroid levels have not been checked in a while. Plan: -TSH and free T4 -Continue levothyroxine 50 mcg #CKD stage IIIa eGFR on admission 47 with creatinine clearance of 33.1 Plan: -Encourage to increase oral fluid intake -Avoid nephrotoxic medications Health maintenance: Dispo: Tele Diet: Cardiac DVT: SCDs [place]: None Lines: Peripheral Med Rec: Pending, f/u PT: Ordered Code: Full Case was discussed with attending physician, Dr Mango Benson MD PGY-1 Attending Provider Attestation/Addendum Pt was evaluated and plan formulated together with the housestaff team. I have reviewed the residents note above and agree with most of its content. Please refer to the residents note for additional details. TIA workup.
[2024-08-02] MEDS: ATORVASTATIN CALCIUM 20 MG TABLET 80 MG PO (21:21)
[2024-08-03] VITALS: BP 114/67; PULSE 80; RESP 18; TEMP 36.1; O2SAT 97
[2024-08-03 04:00] VITALS: BP 123/65; PULSE 64; RESP 18; TEMP 36.1; O2SAT 99
[2024-08-03] MEDS: LEVOTHYROXINE SODIUM 25 MCG TABLET 50 MCG PO (05:11)
[2024-08-03 06:00] VITALS: BMI 28.7
[2024-08-03 06:11] LABS: Basophils # (Auto) 0.1 Thou/mm3 (0.0-0.2); Basophils % (Auto) 1 % (0-2.5); Eosinophils # (Auto) 1.6 Thou/mm3 (0.0-0.5); Eosinophils % (Auto) 18 % (0-10); Hematocrit 38.2 % (36.0-46.0); Hemoglobin 12.7 g/dL (12.0-16.0); Immature Granulocytes % (Auto) 0 % (0-0); Immature Granulocytes Auto 0.02 Thou/mm3 (0.00-0.00); Lymphocytes # (Auto) 2.5 Thou/mm3 (1.0-4.8); Lymphocytes % (Auto) 27 % (10-50); Mean Corpuscular HGB Conc 33.2 g/dl (31.0-37.0); Mean Corpuscular Hemoglobin 30.1 pg (25.0-35.0); Mean Corpuscular Volume 91 fL (80-100); Monocytes # (Auto) 0.6 Thou/mm3 (0.0-0.8); Monocytes % (Auto) 6 % (0-12); Neutrophils # (Auto) 4.4 Thou/mm3 (1.8-7.7); Neutrophils % (Auto) 48 % (37-80); Nucleated Red Blood Cell % 0 /100 WBC (0); Platelet Count 216 Thou/mm3 (140-440); RDW Standard Deviation 47.1 fL (36.4-46.3); Red Blood Count 4.22 Miln/mm3 (4.00-5.20); White Blood Count 9.1 Thou/mm3 (3.6-11.0)
[2024-08-03 06:34] LABS: Alanine Aminotransferase 25 U/L (10-49); Albumin, Serum 4.2 gm/dL (3.4-4.8); Albumin/Globulin Ratio 1.7 (1.2-2.2); Alkaline Phosphatase 87 U/L (46-116); Anion Gap 7 (7-16); Aspartate Amino Transferase 26 U/L (0-34); BUN/Creatinine Ratio 13 Ratio (12-20); Bilirubin,Total 0.4 mg/dL (0.3-1.2); Blood Urea Nitrogen 13 mg/dL (9-23); Calcium 9.7 mg/dL (8.3-10.6); Calcium (Corrected) 9.7 mg/dL (8.5-10.1); Carbon Dioxide 27.4 mMol/L (20.0-31.0); Cardiac Risk Estimate 3.3 RATIO (3.7-5.6); Chloride 106 mMol/L (98-107); Cholesterol 153 mg/dL (132-200); Estimated Creatinine Clearance 39.7 mL/min (>60); Free T4 (Free Thyroxine) 1.02 ng/dL (0.89-1.76); Globulin 2.5 gm/dL (2.3-3.5); Glucose 96 mg/dL (74-106); HDL Cholesterol 46 mg/dL (40-60); LDL Cholesterol,Calculated 86 mg/dL (0-130); Magnesium 1.9 mg/dL (1.6-2.6); Osmolality,Calculated 279 (275-295); Sodium 140 mMol/L (136-145); Thyroid Stimulating Hormone 7.45 uIU/mL (0.55-4.78); Total Protein 6.7 gm/dL (5.7-8.2); Triglycerides 105 mg/dL (30-150); eGFR 59 See Note
[2024-08-03 06:48] LABS: Glucose Estimated Average 108 mg/dL (80-131); Hemoglobin A1C 5.4 % Hgb (4.8-6.0)
[2024-08-03 08:00] VITALS: BP 110/63; PULSE 93; RESP 18; TEMP 36; O2SAT 98
--- NOTE | 2024-08-03 08:01 | XR_ITS ---
Examination: CTA chest with intravenous contrast 2-D reconstructions 3-D reconstructions, vascular Date and time of exam: August 03, 2024 0949 hrs. Indications: Dizziness episodes and headache shortness of breath chest pain since yesterday CTDI: vol (mGy) 13.8 DLP: (mGycm) 275 Technique: Multiple axial sections of the thorax have been obtained. 3 mm slice thickness, from below the hemidiaphragms to above the apices of the lungs. Mediastinal and lung density settings have been obtained. 2-D sagittal and coronal reconstructions. 3-D angiographic renderings, 3-D volume renderings, 3D post processing, vascular maximum intensity projections obtained. Contrast administered is 100 cc Isovue-370 intravenous. Low dose protocols were performed. One or more of the following dose reduction techniques were used; automated exposure control, adjustment of the mA and/or KV according to patient size, use of iterative reconstruction technique. Findings: Thoracic aortic calcification no aneurysmal dilatation Pulmonary artery segments are not enlarged No pulmonary artery emboli There is opacification of the left subclavian axillary and brachial artery with no significant stenoses No paratracheal tracheobronchial or bronchopulmonary adenopathy No pneumonia or pulmonary edema or pleural disease No visualized liver or splenic lesion No gallstones No pancreatic mass Mild nodular thickening left adrenal gland Impression: Negative for pulmonary artery emboli No pathologic mediastinal lymphadenopathy No pneumonia, pulmonary edema, or pleural disease
[2024-08-03] MEDS: Aspirin 325 MG TABLET PO (08:54)
[2024-08-03] MEDS: PANTOPRAZOLE 40 MG TABLET PO (08:54)
--- NOTE | 2024-08-03 11:29 | PCS.ST ---
swallow eval complete. see report for additional details.
[2024-08-03 12:00] VITALS: BP 120/75; PULSE 92; RESP 19; TEMP 36.1; O2SAT 94
--- NOTE | 2024-08-03 12:40 | PD.RESPRO ---
Documentation for date of: 08/03/24 Subjective Subjective Interval history: No acute overnight events. Patient feeling well today. She states she slept okay. Tolerating oral intake without nausea or vomiting. Does not feel dizzy or lightheaded or confused. Denies fever, chills, headaches, chest pain, sob, cough, GI or urinary symptoms. Exam Vital Signs Temp Pulse Resp BP Pulse Ox O2 Del Method 96.8 F 93 18 110/63 98 Room Air 08/03/24 08:00 08/03/24 08:00 08/03/24 08:00 08/03/24 08:00 08/03/24 08:00 08/03/24 08:00 Narrative Exam GENERAL: Normal revealing elderly female, NAD, on room air HEENT: NCAT.?MAHENDRA. Oral mucosa is moist. Patent Nares NECK: Supple, nontender, no thyromegaly, no meningismus, no JVD, no step offs CHEST: Symmetrical, atraumatic, and with equal expansion, Nontender on palpation no deformity and no crepitus. CARDIOVASCULAR: RRR, no m/g/r LUNGS: CTAB, no w/r/r. Symmetrical chest rise. No intercostal subcostal retraction. ABDOMEN: Soft, flat, nontender. No guarding/rebound tenderness/masses. +BS EXTREMITIES: Nontender.? No edema/cyanosis.?Moves all 4 extremities well, with full ROM and good CSM. SKIN: Warm and dry, no jaundice/rashes. MSK: No lumbar or midline, no CVA, no paraspinal muscle spasm or tenderness. NEURO: MORGAN x4, CN II-XII grossly intact.?No focal neurologic deficits. PSYCHIATRIC: Normal mood and affect, cooperative, no SI or HI or hallucinations. Objective Labs 08/03/24 05:51 08/03/24 05:51 Labs: Laboratory Results - last 24 hr 08/02/24 08/02/24 08/03/24 17:28 18:42 05:51 WBC 10.7 9.1 RBC 4.63 4.22 Hgb 14.1 12.7 Hct 42.3 38.2 MCV 91 91 MCH 30.5 30.1 MCHC 33.3 33.2 RDW Std Deviation 47.7 H 47.1 H Plt Count 246 216 D Neut % (Auto) 45 48 Lymph % (Auto) 33 27 [place] % (Auto) 5 6 Eos % (Auto) 16 H 18 H Baso % (Auto) 1 1 Neut # (Auto) 4.8 4.4 Lymph # (Auto) 3.5 2.5 [place] # (Auto) 0.5 0.6 Eos # (Auto) 1.7 H 1.6 H Baso # (Auto) 0.1 0.1 Immature Gran # (Auto) 0.03 H 0.02 H Absolute Nucleated RBC 0.00 0.00 Immature Gran % 0 0 Nucleated RBC % 0 0 PT 10.8 INR 1.0 APTT 27.1 Sodium 139 140 Potassium 3.9 4.0 Chloride 104 106 Carbon Dioxide 28.0 27.4 Anion Gap 7 7 BUN 13 13 Creatinine 1.2 1.0 Estim Creat Clear Calc 33.1 L 39.7 L eGFR 47 L 59 L BUN/Creatinine Ratio 11 L 13 Glucose [address] Glu mg/dL 108 Hemoglobin A1c 5.4 Calculated Osmolality 277 279 Calcium 10.0 9.7 Corrected Calcium 10.0 9.7 Magnesium 1.8 1.9 Total Bilirubin 0.4 0.4 AST 26 26 ALT 28 25 Alkaline Phosphatase 98 87 Troponin I < 0.020 Total Protein 7.6 6.7 Albumin 4.9 H 4.2 D Globulin 2.7 2.5 Albumin/Globulin Ratio 1.8 1.7 Triglycerides 105 Cholesterol 153 LDL Cholesterol, Calc 86 HDL Cholesterol 46 Cholesterol/HDL Ratio 3.3 L TSH 7.45 H Free T4 1.02 Ur Collection Type Clean Catch Urine Color Colorless A Urine Clarity Clear Urine pH 6.0 Ur Specific [place] 1.020 Urine Protein Negative Urine Glucose (UA) Negative Urine Ketones Negative Urine Blood Negative Urine Nitrite Negative Urine Bilirubin Negative Urine Urobilinogen (Auto) Negative Ur Leukocyte Esterase Positive Urine RBC 3 Urine WBC 21 H Ur Squamous Epith Cells 3 Urine Bacteria None Urine Opiates Screen Negative Urine Fentanyl Screen Negative Ur Barbiturates Screen Negative U Amphetamin/Meth Scrn Negative U Benzodiazepines Scrn Negative U Cocaine Metab Screen Negative U Marijuana (THC) Screen Negative HCG (Qual) Negative Quality Measures Quality Measures none Advance care planning discussed with:: patient Assessment & Plan Assessment Current Active Medications: Generic Name Dose Route Start Last Admin Trade Name Freq PRN Reason Stop Dose Admin Acetaminophen 650 mg 08/02/24 20:05 Acetaminophen 325 Mg Tablet PO 09/01/24 20:04 Q6H PRN Pain 1-3 or Fever >100.3 Aspirin 325 mg 08/03/24 09:00 08/03/24 08:54 Aspirin 325 Mg Tablet PO 09/02/24 08:59 325 mg QDAY KIRIT Administration Atorvastatin Calcium 80 mg 08/02/24 21:00 08/02/24 21:21 Atorvastatin Calcium 20 Mg Tablet PO 09/01/24 20:59 80 mg HS KIRIT Administration Levothyroxine Sodium 50 mcg 08/03/24 06:00 08/03/24 05:11 Levothyroxine Sodium 25 Mcg Tablet PO 09/02/24 05:59 50 mcg ACBR KIRIT Administration Ondansetron HCl 4 mg 08/02/24 20:10 Ondansetron Inj 2 Mg/Ml Inj 2 Ml IV 09/01/24 20:09 Q6H PRN NAUSEA OR VOMITING Protocol Pantoprazole Sodium 40 mg 08/03/24 09:00 08/03/24 08:54 Pantoprazole 40 Mg Tablet PO 09/02/24 08:59 40 mg QDAY KIRIT Administration Tramadol HCl 50 mg 08/02/24 20:10 Tramadol Hcl 50 Mg Tablet PO 08/07/24 20:09 Q6HR PRN PAIN SCALE 4-6 (Moderate Plan In summary: 74-year-old female with PMHx of HTN, HLD, presented with near syncopal episode, admitted for syncope versus TIA. CT head negative, MRI and echo pending. Appreciate recommendations from cardiology and neurology. Syncope TIA versus vasovagal syncope Stroke workup Presented with near syncopal episode, without fall or head trauma Denies speech abnormalities or focal neurological deficits, Neuroexam normal, NIHSS score 0 CT head and CTA head/neck are negative, without acute pathology. EKG sinus rhythm, orthostatics negative Carotid Doppler done on 07/23 showed bilateral carotid 0-10% stenosis Teleneuro consulted, in house neurology following, recommendations as below: ? Telemetry ? Follow-up MRI with/without contrast ? Follow-up echocardiogram ? Continue ASPIRIN 325 mg daily ? Continue ATORVASTATIN 80 mg daily ? Head elevation greater than 30 degrees ? Neurochecks q.4h. ? Physical therapy Inter arm difference in blood pressure Likely subclavian steal syndrome versus thoracic outlet syndrome, less likely coarctation. History of blood pressure difference, per patient. On exam: right arm was 164/86 on left arm 138/72, weaker pulse on the left compared to the right upper extremity, intact bilateral lower extremity pulses. All extremities warm, well-perfused and nontender. No notable carotid bruit on exam. CTA chest showed thoracic aortic calcification without aneurysm, opacification of left subclavian, axillary and brachial artery with no significant stenosis, mild nodular thickening of left adrenal gland. Radiology recommended follow-up extremity Doppler ultrasound ? Follow-up upper extremity Doppler ultrasound ? Continue monitoring ? Physical therapy HTN, HLD Patient is currently not taking her home meds. Normotensive on admission. Lipid panel: TGC 105, cholesterol 153, LDL 86 ? Continue ATORVASTATIN 80 mg HS ? Consider adding ANTIHYPERTENSIVE as indicated Subclinical hypothyroidism History of hypothyroidism TSH 7.45, free T4 1.0 normal ? Resumed home LEVOTHYROXINE 50 mcg AC BR Asymptomatic pyuria Patient urine WBC 21, positive leukocyte esterase, patient asymptomatic ? Covered with ROCEPHIN as above ? Follow-up urine culture CKD stage IIIa eGFR on admission 47 with creatinine clearance of 33.1 ? Encourage to increase oral fluid intake ? Avoid nephrotoxic medications Health maintenance Diet: Cardiac GI prophylaxis: PROTONIX DVT prophylaxis: SCDs Antibiotics: None indicated CODE STATUS: Full code Disposition: Pending further evaluation Patient case was discussed with attending, Dr. Saman Man DO, and senior residents Dr. Claros and Dr. Barton. Rhett Groves DO PGYI Attending Provider Attestation/Addendum I have discussed and was present for the essential components of the history, physical examination, diagnosis, and treatment plan with the resident. I agree with the patient's care as documented by the resident and amended herein by me. Jens Man DO. CVA rule out, MRI brain pending, echo pending, will follow-up with urine cultures, will continue aspirin 325 mg daily for now. Neurology consulted, appreciate recommendations. Bilateral arterial ultrasound upper extremity ordered to evaluate blood pressure differentiation in the upper extremities. CTA negative. Although this document has been carefully reviewed, there may still be some phonetic and other typographical errors. These errors are purely grammatical due to imperfections in the software program and should not be construed in any way to compromise the substance of the patient's medical care during this visit.
--- NOTE | 2024-08-03 14:00 | XR_ITS ---
Examination: Arterial duplex upper extremity study. Date and time of exam: August 03, 2024 2151 hrs. Indications: Differential arm blood pressure on examination today Findings: Duplex sonographic imaging of the upper extremity arteries using B-mode/Amato scale imaging and Doppler spectral analysis and color flow. There is elevation of peak systolic right axillary right brachial velocities No elevation of peak systolic velocities in the aorta system left upper extremity Impression: Elevation of peak systolic arterial velocities involving right axillary right brachial arteries, consider stenosis in the right subclavian artery Recommend CTA right upper extremity arteries post contrast follow-up
[2024-08-03 16:00] VITALS: BP 108/79; PULSE 67; RESP 18; TEMP 36.1; O2SAT 99
[2024-08-03 20:00] VITALS: BP 99/61; PULSE 67; PULSE 77; RESP 18; TEMP 36.3; O2SAT 95
[2024-08-03] MEDS: ATORVASTATIN CALCIUM 20 MG TABLET 80 MG PO (20:19)
--- NOTE | 2024-08-03 20:42 | VVPN_ITS ---
Telemedicine visit statement This visit was conducted with the use of interactive audio and video telecommunications system that permits real time communication between the patient and the provider. Patient's verbal consent for virtual visit was obtained on 08/03/24 at 2042. Documentation for date of: 08/03/24 Subjective Subjective Interval history: Patient is in telemetry, she has not had any similar episodes of syncope after admission, denies any headache dizziness nausea vomiting. She denies any weakness or paresthesias in the upper or lower extremities. Virtual exam Vital Signs Temp Pulse Resp BP Pulse Ox O2 Del Method 97.3 F 77 18 99/61 95 Room Air 08/03/24 20:00 08/03/24 20:00 08/03/24 20:00 08/03/24 20:00 08/03/24 20:00 08/03/24 20:00 Objective Labs 08/03/24 05:51 08/03/24 05:51 Labs: Laboratory Results - last 24 hr 08/03/24 05:51 WBC 9.1 RBC 4.22 Hgb 12.7 Hct 38.2 MCV 91 MCH 30.1 MCHC 33.2 RDW Std Deviation 47.1 H Plt Count 216 D Neut % (Auto) 48 Lymph % (Auto) 27 [place] % (Auto) 6 Eos % (Auto) 18 H Baso % (Auto) 1 Neut # (Auto) 4.4 Lymph # (Auto) 2.5 [place] # (Auto) 0.6 Eos # (Auto) 1.6 H Baso # (Auto) 0.1 Immature Gran # (Auto) 0.02 H Absolute Nucleated RBC 0.00 Immature Gran % 0 Nucleated RBC % 0 Sodium 140 Potassium 4.0 Chloride 106 Carbon Dioxide 27.4 Anion Gap 7 BUN 13 Creatinine 1.0 Estim Creat Clear Calc 39.7 L eGFR 59 L BUN/Creatinine Ratio [address] Glu mg/dL 108 Hemoglobin A1c 5.4 Calculated Osmolality 279 Calcium 9.7 Corrected Calcium 9.7 Magnesium 1.9 Total Bilirubin 0.4 AST 26 ALT 25 Alkaline Phosphatase 87 Total Protein 6.7 Albumin 4.2 D Globulin 2.5 Albumin/Globulin Ratio 1.7 Triglycerides 105 Cholesterol 153 LDL Cholesterol, Calc 86 HDL Cholesterol 46 Cholesterol/HDL Ratio 3.3 L TSH 7.45 H Free T4 1.02 Assessment & Plan Problem List (1) Stroke-like symptoms: Status: Acute Assessment and plan: Follow-up with MRI brain, EEG. Continue to monitor her closely.
[2024-08-04] VITALS (7 sets, daily range): BP systolic 101–143; BP diastolic 61–78; PULSE 64–83; RESP 16–19; TEMP 35.9–36.3; O2SAT 93–98; BMI 28.5
--- NOTE | 2024-08-04 | XR_ITS ---
Examination: MRI of brain without intravenous contrast. MRI brain with intravenous contrast. Date and time of exam:August 04, 2024 1149 hours Comparison May 08, 2022 INDICATIONS: Transient ischemic attacks syncopal episodes, stroke alert August 02, 2024 Technique: Multiple axial and sagittal images of the brain to been obtained. Siemens high-resolution 1.52 Mitra short bore scanner utilized. Sagittal sections, T1 weighted images, TR 500, TE 14, are performed. Axial sections proton-density and T2-weighted images have been obtained. Inversion recovery axial images, TR 9260, TE 111, TR 2500. Diffusion weighted images, axial sections, TR 4800, TE 128, B value 1000. Axial sections, ADC map, TR 4800, TE 128. Axial and coronal images were also obtained post 12 cc gadolinium administered intravenously. Findings:: Enlargement of the sella turcica is not present. The optic chiasm and infundibular stalk are not remarkable. There is no localized enlargement of the medulla or holli. Fourth ventricle and cerebellar tonsils appear normal in position. No subacute area of hemorrhage density is seen. Fourth ventricle is midline. Mass in the cerebellopontine angle region is not evident. 7th and 8th nerve complexes exhibit symmetry Globes are symmetrical Orbital musculature including medial lateral rectus muscles do not exhibit abnormality Increased white matter signal is mild Effacement of the cortical sulcal markings is not identified. Mass effect upon the ventricular system is not identified. Diffusion-weighted images demonstrate no focus of restricted diffusion Contrast images demonstrate no abnormal enhancement Impression: Negative for acute hemorrhage mass effect or midline shift No acute infarct Mild chronic microvascular white matter change Bilateral mastoiditis
--- NOTE | 2024-08-04 04:46 | RESP.EEG ---
EEG completed and ready to review.
[2024-08-04] MEDS: LEVOTHYROXINE SODIUM 25 MCG TABLET 50 MCG PO (05:20)
[2024-08-04 05:58] LABS: Basophils # (Auto) 0.1 Thou/mm3 (0.0-0.2); Basophils % (Auto) 1 % (0-2.5); Eosinophils # (Auto) 1.7 Thou/mm3 (0.0-0.5); Eosinophils % (Auto) 18 % (0-10); Hematocrit 40.7 % (36.0-46.0); Hemoglobin 13.5 g/dL (12.0-16.0); Immature Granulocytes % (Auto) 0 % (0-0); Immature Granulocytes Auto 0.03 Thou/mm3 (0.00-0.00); Lymphocytes # (Auto) 2.1 Thou/mm3 (1.0-4.8); Lymphocytes % (Auto) 22 % (10-50); Mean Corpuscular HGB Conc 33.2 g/dl (31.0-37.0); Mean Corpuscular Hemoglobin 30.7 pg (25.0-35.0); Mean Corpuscular Volume 93 fL (80-100); Monocytes # (Auto) 0.5 Thou/mm3 (0.0-0.8); Monocytes % (Auto) 6 % (0-12); Neutrophils # (Auto) 4.8 Thou/mm3 (1.8-7.7); Neutrophils % (Auto) 52 % (37-80); Nucleated Red Blood Cell % 0 /100 WBC (0); Platelet Count 210 Thou/mm3 (140-440); RDW Standard Deviation 48.9 fL (36.4-46.3); White Blood Count 9.2 Thou/mm3 (3.6-11.0)
[2024-08-04 06:22] LABS: Alanine Aminotransferase 26 U/L (10-49); Albumin, Serum 4.3 gm/dL (3.4-4.8); Albumin/Globulin Ratio 1.5 (1.2-2.2); Alkaline Phosphatase 94 U/L (46-116); Anion Gap 6 (7-16); Aspartate Amino Transferase 29 U/L (0-34); BUN/Creatinine Ratio 14 Ratio (12-20); Bilirubin,Total 0.5 mg/dL (0.3-1.2); Blood Urea Nitrogen 14 mg/dL (9-23); Calcium 10.1 mg/dL (8.3-10.6); Calcium (Corrected) 10.1 mg/dL (8.5-10.1); Carbon Dioxide 29.6 mMol/L (20.0-31.0); Chloride 105 mMol/L (98-107); Estimated Creatinine Clearance 39.6 mL/min (>60); Globulin 2.8 gm/dL (2.3-3.5); Glucose 95 mg/dL (74-106); Osmolality,Calculated 281 (275-295); Potassium 4.2 mMol/L (3.4-5.1); Sodium 141 mMol/L (136-145); Total Protein 7.1 gm/dL (5.7-8.2); eGFR 59 See Note
--- NOTE | 2024-08-04 07:51 | ESPR_ITS ---
Documentation for date of: 08/04/24 Subjective Subjective Interval history: No acute overnight events. Tolerating oral intake without nausea or vomiting. No new or worsening neurological symptoms. Denies fever, chills, headaches, chest pain, sob, cough, GI or urinary symptoms. Exam Vital Signs Temp Pulse Resp BP Pulse Ox O2 Del Method 97.3 F 70 18 103/61 96 Room Air 08/04/24 04:00 08/04/24 04:00 08/04/24 04:00 08/04/24 04:00 08/04/24 04:00 08/04/24 04:00 Narrative Exam GENERAL: Normal revealing elderly female, NAD, on room air HEENT: NCAT.?MAHENDRA. Oral mucosa is moist. Patent Nares NECK: Supple, nontender, no thyromegaly, no meningismus, no JVD, no step offs CHEST: Symmetrical, atraumatic, and with equal expansion, Nontender on palpation no deformity and no crepitus. CARDIOVASCULAR: RRR, no m/g/r LUNGS: CTAB, no w/r/r. Symmetrical chest rise. No intercostal subcostal retraction. ABDOMEN: Soft, flat, nontender. No guarding/rebound tenderness/masses. +BS EXTREMITIES: Nontender.? No edema/cyanosis.?Moves all 4 extremities well, with full ROM and good CSM. SKIN: Warm and dry, no jaundice/rashes. MSK: No lumbar or midline, no CVA, no paraspinal muscle spasm or tenderness. NEURO: MORGAN x4, CN II-XII grossly intact.?No focal neurologic deficits. PSYCHIATRIC: Normal mood and affect, cooperative, no SI or HI or hallucinations. Objective Labs 08/05/24 06:04 08/05/24 06:04 Labs: Laboratory Results - last 24 hr 08/04/24 05:39 WBC 9.2 RBC 4.40 Hgb 13.5 Hct 40.7 MCV 93 MCH 30.7 MCHC 33.2 RDW Std Deviation 48.9 H Plt Count 210 Neut % (Auto) 52 Lymph % (Auto) 22 [place] % (Auto) 6 Eos % (Auto) 18 H Baso % (Auto) 1 Neut # (Auto) 4.8 Lymph # (Auto) 2.1 [place] # (Auto) 0.5 Eos # (Auto) 1.7 H Baso # (Auto) 0.1 Immature Gran # (Auto) 0.03 H Absolute Nucleated RBC 0.00 Immature Gran % 0 Nucleated RBC % 0 Sodium 141 Potassium 4.2 Chloride 105 Carbon Dioxide 29.6 Anion Gap 6 L BUN 14 Creatinine 1.0 Estim Creat Clear Calc 39.6 L eGFR 59 L BUN/Creatinine Ratio 14 Glucose 95 Calculated Osmolality 281 Calcium 10.1 Corrected Calcium 10.1 Magnesium 2.0 Total Bilirubin 0.5 AST 29 ALT 26 Alkaline Phosphatase 94 Total Protein 7.1 Albumin 4.3 Globulin 2.8 Albumin/Globulin Ratio 1.5 Quality Measures Quality Measures none Advance care planning discussed with:: patient Assessment & Plan Assessment Current Active Medications: Generic Name Dose Route Start Last Admin Trade Name Freq PRN Reason Stop Dose Admin Acetaminophen 650 mg 08/02/24 20:05 Acetaminophen 325 Mg Tablet PO 09/01/24 20:04 Q6H PRN Pain 1-3 or Fever >100.3 Aspirin 325 mg 08/03/24 09:00 08/03/24 08:54 Aspirin 325 Mg Tablet PO 09/02/24 08:59 325 mg QDAY KIRIT Administration Atorvastatin Calcium 80 mg 08/02/24 21:00 08/03/24 20:19 Atorvastatin Calcium 20 Mg Tablet PO 09/01/24 20:59 80 mg HS KIRIT Administration Levothyroxine Sodium 50 mcg 08/03/24 06:00 08/04/24 05:20 Levothyroxine Sodium 25 Mcg Tablet PO 09/02/24 05:59 50 mcg ACBR KIRIT Administration Ondansetron HCl 4 mg 08/02/24 20:10 Ondansetron Inj 2 Mg/Ml Inj 2 Ml IV 09/01/24 20:09 Q6H PRN NAUSEA OR VOMITING Protocol Pantoprazole Sodium 40 mg 08/03/24 09:00 08/03/24 08:54 Pantoprazole 40 Mg Tablet PO 09/02/24 08:59 40 mg QDAY KIRIT Administration Tramadol HCl 50 mg 08/02/24 20:10 Tramadol Hcl 50 Mg Tablet PO 08/07/24 20:09 Q6HR PRN PAIN SCALE 4-6 (Moderate Plan In summary: 74-year-old female with PMHx of HTN, HLD, presented with near syncopal episode, admitted for syncope versus TIA. CT head negative, MRI no acute pathology however showed bilateral mastoiditis. Additionally, upper extremity duplex ultrasound done for blood pressure difference, suggested possible right subclavian artery stenosis. Cardiology recommended upper extremity CTA to rule out subclavian steal syndrome, which is currently pending. Appreciate recommendations from cardiology and neurology. Syncope TIA versus vasovagal syncope Stroke workup Presented with near syncopal episode, without fall or head trauma Denies speech abnormalities or focal neurological deficits, Neuroexam normal, NIHSS 0 CT head and CTA head/neck are negative, without acute pathology. MRI no acute pathology however showed bilateral mastoiditis EKG sinus rhythm, orthostatics negative Carotid Doppler done on 07/23 showed bilateral carotid 0-10% stenosis Physical therapy: Patient independent Teleneuro consulted, in house neurology following, recommendations as below: ? Telemetry ? Pending echocardiogram ? Pending EEG ? Continue ASPIRIN 81 mg daily ? Continue ATORVASTATIN 80 mg daily ? Head elevation greater than 30 degrees ? Neurochecks q.4h. ? Physical therapy Inter arm difference in blood pressure ? Subclavian steal syndrome Likely subclavian steal syndrome versus thoracic outlet syndrome, less likely coarctation. History of blood pressure difference, per patient. On exam: right arm was 164/86 on left arm 138/72, weaker pulse on the left compared to the right upper extremity, intact bilateral lower extremity pulses. All extremities warm, well- perfused and nontender. No notable carotid bruit on exam. CTA chest showed thoracic aortic calcification without aneurysm, opacification of left subclavian, axillary and brachial artery with no significant stenosis, mild nodular thickening of left adrenal gland. Upper extremity duplex US showed elevation of peak systolic arterial velocity involving right external and right brachial arteries, suggest right subclavian artery stenosis, recommended CTA of right upper extremity. ? Continue monitoring ? Physical therapy ? Follow-up right upper extremity CTA HTN, HLD Patient is currently not taking her home meds. Normotensive on admission. Lipid panel: TGC 105, cholesterol 153, LDL 86 ? Continue ATORVASTATIN 80 mg HS ? Consider adding ANTIHYPERTENSIVE as indicated Subclinical hypothyroidism History of hypothyroidism TSH 7.45, free T4 1.0 normal ? Resumed home LEVOTHYROXINE 50 mcg AC BR Asymptomatic pyuria Patient urine WBC 21, positive leukocyte esterase, patient asymptomatic ? Follow-up urine culture CKD stage IIIa eGFR on admission 47 with creatinine clearance of 33.1 ? Encourage to increase oral fluid intake ? 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 Will follow up with neurology. Recommended outpatient follow-up. Health maintenance Diet: Cardiac GI prophylaxis: PROTONIX DVT prophylaxis: SCDs Antibiotics: None indicated CODE STATUS: Full code Disposition: Pending further evaluation Patient case was discussed with attending, Vitor Anders MD, and senior residents Dr. Claros and Dr. Barton. Rhett Friedmananthony, DO PGYI Ms. Monteiro is a pleasant 74-year-old female admitted for syncope and stroke workup. Patient's head CT and MRI brain are negative for any acute findings. Pending echocardiogram and PT evaluation at this time. Cardiology was consulted for further evaluation of pressure difference in bilateral upper extremity. CTA chest was ordered which was negative. However was followed up with upper extremity bilateral duplex ultrasound, which was remarkable for elevation of peak systolic arterial velocities in the right external and right brachial arteries, suggestive of right subclavian artery stenosis. As per radiology and cardiology recommendations, follow-up CTA right upper extremity was ordered for further assessment. Patient's symptoms likely due to the subclavian stenosis. Stroke workup negative, will follow-up with neurology for discharge recommendations. Dispo: CT right upper extremity, for further evaluation by cardiology regarding intervention. Patient examined and case discussed with the team including attending physician. Note reviewed, I agree with the care plan as documented. - Mychal Barton MD, PGY 2 Attending Provider Attestation/Addendum I reviewed labs, imaging, EKG, home medications and prior available records. Face to face evaluation was performed by me. I have personally examined the patient and discussed assessment and plan with the IM team. I reviewed the resident note and agree with the plan with exceptions as below. CVA symptoms TIA Syncope, unclear etiology CKD stage IIIa Continue aspirin and atorvastatin Orthostatic vital signs are negative Follow-up brain MRI, EEG, and echocardiogram Follow-up CTA of right upper extremity to rule out subclavian artery stenosis Monitor kidney function. Avoid nephrotoxins. Renally dosed medications
[2024-08-04] MEDS: PANTOPRAZOLE 40 MG TABLET PO (09:10)
[2024-08-04] MEDS: ASPIRIN EC 81 MG TABEC PO (09:10)
--- NOTE | 2024-08-04 09:55 | ESPR_ITS ---
Documentation for date of: 08/04/24 Subjective Subjective Interval history: No overnight events. Patient denies headache, dizziness, problems swallowing. Has already been evaluated by speech pathology and PT. Pending MRI Exam Vital Signs Temp Pulse Resp BP Pulse Ox O2 Del Method 97.3 F 70 18 103/61 96 Room Air 08/04/24 04:00 08/04/24 04:00 08/04/24 04:00 08/04/24 04:00 08/04/24 04:00 08/04/24 04:00 Narrative Exam GENERAL: Awake, alert and oriented. No acute distress. HEENT: Normocephalic, atraumatic and nontender.? Pupils are equal and reactive to light and accommodation.? Oral mucosa moist. NECK: Supple without adenopathy. Traquea midline. Nontender, carotid pulse 2+ bilaterally without bruits, no JVD.? CHEST: Heart rate and rythm normal, no murmurs, gallops auscultated. S1 & 2 normal insensity. Nontender on palpation, no deformity and no crepitus. LUNGS: Lung sounds are clear.? No wheezing, rales or ronchi.? No intercostal subcostal retraction. Room air ABDOMEN: Soft,symmetric , nontender, no guarding or rebound tenderness. No abnormal masses palpated.? No pulsatile masses or bruits.? Bowel sounds are normoactive in all 4 quadrants. EXTREMITIES: Nontender.? No pitting edema.? No cyanosis.? Patient is able to move all 4 extremities. SKIN: No rashes noted. NEURO:? Cranial nerves intact.? There is no focalization.? GCS is 15. Objective Labs 08/05/24 06:04 08/05/24 06:04 Labs: Laboratory Results - last 24 hr 08/04/24 05:39 WBC 9.2 RBC 4.40 Hgb 13.5 Hct 40.7 MCV 93 MCH 30.7 MCHC 33.2 RDW Std Deviation 48.9 H Plt Count 210 Neut % (Auto) 52 Lymph % (Auto) 22 [place] % (Auto) 6 Eos % (Auto) 18 H Baso % (Auto) 1 Neut # (Auto) 4.8 Lymph # (Auto) 2.1 [place] # (Auto) 0.5 Eos # (Auto) 1.7 H Baso # (Auto) 0.1 Immature Gran # (Auto) 0.03 H Absolute Nucleated RBC 0.00 Immature Gran % 0 Nucleated RBC % 0 Sodium 141 Potassium 4.2 Chloride 105 Carbon Dioxide 29.6 Anion Gap 6 L BUN 14 Creatinine 1.0 Estim Creat Clear Calc 39.6 L eGFR 59 L BUN/Creatinine Ratio 14 Glucose 95 Calculated Osmolality 281 Calcium 10.1 Corrected Calcium 10.1 Magnesium 2.0 Total Bilirubin 0.5 AST 29 ALT 26 Alkaline Phosphatase 94 Total Protein 7.1 Albumin 4.3 Globulin 2.8 Albumin/Globulin Ratio 1.5 Quality Measures Quality Measures none Advance care planning discussed with:: patient Assessment & Plan Assessment Current Active Medications: Generic Name Dose Route Start Last Admin Trade Name Freq PRN Reason Stop Dose Admin Acetaminophen 650 mg 08/02/24 20:05 Acetaminophen 325 Mg Tablet PO 09/01/24 20:04 Q6H PRN Pain 1-3 or Fever >100.3 Aspirin 81 mg 08/04/24 09:00 08/04/24 09:10 Aspirin Ec 81 Mg Tabec PO 09/03/24 08:59 81 mg QDAY KIRIT Administration Atorvastatin Calcium 80 mg 08/02/24 21:00 08/03/24 20:19 Atorvastatin Calcium 20 Mg Tablet PO 09/01/24 20:59 80 mg HS KIRIT Administration Levothyroxine Sodium 50 mcg 08/03/24 06:00 08/04/24 05:20 Levothyroxine Sodium 25 Mcg Tablet PO 09/02/24 05:59 50 mcg ACBR KIRIT Administration Ondansetron HCl 4 mg 08/02/24 20:10 Ondansetron Inj 2 Mg/Ml Inj 2 Ml IV 09/01/24 20:09 Q6H PRN NAUSEA OR VOMITING Protocol Pantoprazole Sodium 40 mg 08/03/24 09:00 08/04/24 09:10 Pantoprazole 40 Mg Tablet PO 09/02/24 08:59 40 mg QDAY KIRIT Administration Tramadol HCl 50 mg 08/02/24 20:10 Tramadol Hcl 50 Mg Tablet PO 08/07/24 20:09 Q6HR PRN PAIN SCALE 4-6 (Moderate Plan 74-year-old female with PMHx of HTN, HLD, presented with near syncopal episode, admitted for syncope versus TIA. CT head negative, MRI and echo pending.Neurology consulted for further evaluation Syncope TIA versus vasovagal syncope Stroke workup -Presented with near syncopal episode, without fall or head trauma, back to baseline -Denies speech abnormalities or focal neurological deficits, Neuroexam normal, NIHSS score 0 -CT head and CTA head/neck negative, without acute pathology. -EKG sinus rhythm, orthostatics negative -Carotid Doppler done on 07/23 showed bilateral carotid 0-10% stenosis -Follow-up echocardiogram -Continue ASPIRIN 81 mg daily -Continue ATORVASTATIN 80 mg daily -Follow-up MRI -Follow up EEG Patient's care discussed with attending physician, Dr Zoie Wilkes MD PGY3 Attending Provider Attestation/Addendum I personally have seen and examined the patient at the bedside and I agree with resident's findings, assessment and plan of care. Reassurance given the negative MRI for acute stroke. Will follow up with the echocardiogram report and decide about discharge tomorrow. Follow-up with EEG when it becomes available as well
--- NOTE | 2024-08-04 10:01 | PC.SS ---
Initial assessment: This is 74 year old female admitted for stroke R/o vs TIA. Patient was able to confirm her home address at [address] [place] [address]. [address] [facility]. Patient lives alone. Patient's emergency contact is her daughter, Linda Lambert, who lives out of state. Patient is independent with ADL's. Patient does not utilize any DME at home. Patient's PCP is Dr. Ritu Cha at [facility]. Pharmacy of choice is [facility]. The discharge plan is to return home. Patient's family to assist with transport. Patient is agreeable to home health, no preferred if recommended at time of discharge. D/c plan: home Contact: daughter, Linda Lambert
--- NOTE | 2024-08-04 14:39 | PC.SS ---
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
[2024-08-04] MEDS: ATORVASTATIN CALCIUM 20 MG TABLET 80 MG PO (20:41)
[2024-08-05] VITALS (8 sets, daily range): BP systolic 93–143; BP diastolic 54–93; PULSE 62–82; RESP 17–18; TEMP 35.9–36.1; O2SAT 97–99
[2024-08-05] MEDS: LEVOTHYROXINE SODIUM 25 MCG TABLET 50 MCG PO (05:26)
[2024-08-05 06:29] LABS: Basophils # (Auto) 0.1 Thou/mm3 (0.0-0.2); Basophils % (Auto) 1 % (0-2.5); Eosinophils # (Auto) 1.6 Thou/mm3 (0.0-0.5); Eosinophils % (Auto) 17 % (0-10); Hematocrit 39.3 % (36.0-46.0); Hemoglobin 13.1 g/dL (12.0-16.0); Immature Granulocytes % (Auto) 0 % (0-0); Immature Granulocytes Auto 0.03 Thou/mm3 (0.00-0.00); Lymphocytes # (Auto) 2.5 Thou/mm3 (1.0-4.8); Lymphocytes % (Auto) 26 % (10-50); Mean Corpuscular HGB Conc 33.3 g/dl (31.0-37.0); Mean Corpuscular Hemoglobin 30.3 pg (25.0-35.0); Mean Corpuscular Volume 91 fL (80-100); Monocytes # (Auto) 0.6 Thou/mm3 (0.0-0.8); Monocytes % (Auto) 6 % (0-12); Neutrophils # (Auto) 4.8 Thou/mm3 (1.8-7.7); Neutrophils % (Auto) 50 % (37-80); Nucleated Red Blood Cell % 0 /100 WBC (0); Platelet Count 222 Thou/mm3 (140-440); RDW Standard Deviation 47.3 fL (36.4-46.3); Red Blood Count 4.33 Miln/mm3 (4.00-5.20); White Blood Count 9.6 Thou/mm3 (3.6-11.0)
[2024-08-05] MEDS: SODIUM CHLORIDE 0.9% 250 ML 250 ML 999 ML IV (07:18)
[2024-08-05 07:19] LABS: Alanine Aminotransferase 27 U/L (10-49); Albumin, Serum 4.3 gm/dL (3.4-4.8); Albumin/Globulin Ratio 1.6 (1.2-2.2); Alkaline Phosphatase 89 U/L (46-116); Anion Gap 7 (7-16); Aspartate Amino Transferase 27 U/L (0-34); BUN/Creatinine Ratio 14 Ratio (12-20); Bilirubin,Total 0.5 mg/dL (0.3-1.2); Blood Urea Nitrogen 14 mg/dL (9-23); Calcium 9.5 mg/dL (8.3-10.6); Calcium (Corrected) 9.5 mg/dL (8.5-10.1); Chloride 105 mMol/L (98-107); Estimated Creatinine Clearance 40.5 mL/min (>60); Globulin 2.7 gm/dL (2.3-3.5); Glucose 99 mg/dL (74-106); Magnesium 1.9 mg/dL (1.6-2.6); Osmolality,Calculated 276 (275-295); Sodium 138 mMol/L (136-145); eGFR 59 See Note
--- NOTE | 2024-08-05 07:30 | PD.RESPRO ---
Documentation for date of: 08/05/24 Subjective Subjective Interval history: No acute overnight events. No new complaints. Tolerating oral intake without nausea or vomiting. Denies fever, chills, headaches, chest pain, sob, cough, GI or urinary symptoms. Exam Vital Signs Temp Pulse Resp BP Pulse Ox O2 Del Method 97.0 F 63 17 111/59 L 97 Room Air 08/05/24 04:00 08/05/24 04:00 08/05/24 04:00 08/05/24 04:00 08/05/24 04:00 08/04/24 20:00 Narrative Exam GENERAL: Normal revealing elderly female, NAD, on room air HEENT: NCAT.?MAHENDRA. Oral mucosa is moist. Patent Nares NECK: Supple, nontender, no thyromegaly, no meningismus, no JVD, no step offs CHEST: Symmetrical, atraumatic, and with equal expansion, Nontender on palpation no deformity and no crepitus. CARDIOVASCULAR: RRR, no m/g/r LUNGS: CTAB, no w/r/r. Symmetrical chest rise. No intercostal subcostal retraction. ABDOMEN: Soft, flat, nontender. No guarding/rebound tenderness/masses. +BS EXTREMITIES: Nontender.? No edema/cyanosis.?Moves all 4 extremities well, with full ROM and good CSM. SKIN: Warm and dry, no jaundice/rashes. MSK: No lumbar or midline, no CVA, no paraspinal muscle spasm or tenderness. NEURO: MORGAN x4, CN II-XII grossly intact.?No focal neurologic deficits. PSYCHIATRIC: Normal mood and affect, cooperative, no SI or HI or hallucinations. Objective Labs 08/05/24 06:04 08/05/24 06:04 Labs: Laboratory Results - last 24 hr 08/05/24 06:04 WBC 9.6 RBC 4.33 Hgb 13.1 Hct 39.3 MCV 91 MCH 30.3 MCHC 33.3 RDW Std Deviation 47.3 H Plt Count 222 Neut % (Auto) 50 Lymph % (Auto) 26 [place] % (Auto) 6 Eos % (Auto) 17 H Baso % (Auto) 1 Neut # (Auto) 4.8 Lymph # (Auto) 2.5 [place] # (Auto) 0.6 Eos # (Auto) 1.6 H Baso # (Auto) 0.1 Immature Gran # (Auto) 0.03 H Absolute Nucleated RBC 0.00 Immature Gran % 0 Nucleated RBC % 0 Sodium 138 Potassium 4.0 Chloride 105 Carbon Dioxide 26.0 Anion Gap 7 BUN 14 Creatinine 1.0 Estim Creat Clear Calc 40.5 L eGFR 59 L BUN/Creatinine Ratio 14 Glucose 99 Calculated Osmolality 276 Calcium 9.5 Corrected Calcium 9.5 Magnesium 1.9 Total Bilirubin 0.5 AST 27 ALT 27 Alkaline Phosphatase 89 Total Protein 7.0 Albumin 4.3 Globulin 2.7 Albumin/Globulin Ratio 1.6 Quality Measures Quality Measures none Assessment & Plan Assessment Current Active Medications: Generic Name Dose Route Start Last Admin Trade Name Freq PRN Reason Stop Dose Admin Acetaminophen 650 mg 08/02/24 20:05 Acetaminophen 325 Mg Tablet PO 09/01/24 20:04 Q6H PRN Pain 1-3 or Fever >100.3 Aspirin 81 mg 08/04/24 09:00 08/04/24 09:10 Aspirin Ec 81 Mg Tabec PO 09/03/24 08:59 81 mg QDAY KIRIT Administration Atorvastatin Calcium 80 mg 08/02/24 21:00 08/04/24 20:41 Atorvastatin Calcium 20 Mg Tablet PO 09/01/24 20:59 80 mg HS KIRIT Administration Levothyroxine Sodium 50 mcg 08/03/24 06:00 08/05/24 05:26 Levothyroxine Sodium 25 Mcg Tablet PO 09/02/24 05:59 50 mcg ACBR KIRIT Administration Ondansetron HCl 4 mg 08/02/24 20:10 Ondansetron Inj 2 Mg/Ml Inj 2 Ml IV 09/01/24 20:09 Q6H PRN NAUSEA OR VOMITING Protocol Pantoprazole Sodium 40 mg 08/03/24 09:00 08/04/24 09:10 Pantoprazole 40 Mg Tablet PO 09/02/24 08:59 40 mg QDAY KIRIT Administration Tramadol HCl 50 mg 08/02/24 20:10 Tramadol Hcl 50 Mg Tablet PO 08/07/24 20:09 Q6HR PRN PAIN SCALE 4-6 (Moderate Plan In summary: 74-year-old female with PMHx of HTN, HLD, presented with near syncopal episode, admitted for syncope versus TIA. CT head negative, MRI no acute pathology however showed bilateral mastoiditis. Additionally, upper extremity duplex ultrasound done for blood pressure difference, suggested possible right subclavian artery stenosis. CTA done showing no significant subclavian or axillary stenosis. Cardiology following, pending recommendations. Appreciate recommendations from cardiology and neurology. No overnight events. Vitals normal CBC CMP normal Negative bubble study MRI chronic microvasculature, bilateral mastoiditis, no acute changes Pending CTA right upper extremity with contrast Syncope TIA versus vasovagal syncope Stroke workup Presented with near syncopal episode, without fall or head trauma Denies speech abnormalities or focal neurological deficits, Neuroexam normal, NIHSS 0 CT head and CTA head/neck are negative, without acute pathology. MRI no acute pathology however showed bilateral mastoiditis EKG sinus rhythm, orthostatics negative Carotid Doppler done on 07/23 showed bilateral carotid 0-10% stenosis Echocardiogram negative bubble study, stage I diastolic dysfunction, EF 50-55 Physical therapy: Patient independent Teleneuro consulted, in house neurology following, recommendations as below: ? Telemetry ? Pending echocardiogram ? Pending EEG ? Continue ASPIRIN 81 mg daily ? Continue ATORVASTATIN 80 mg daily ? Head elevation greater than 30 degrees ? Neurochecks q.4h. ? Physical therapy Inter arm difference in blood pressure ? Subclavian steal syndrome Likely subclavian steal syndrome versus thoracic outlet syndrome, less likely coarctation. History of blood pressure difference, per patient. On exam: right arm was 164/86 on left arm 138/72, weaker pulse on the left compared to the right upper extremity, intact bilateral lower extremity pulses. All extremities warm, well-perfused and nontender. No notable carotid bruit on exam. CTA chest showed thoracic aortic calcification without aneurysm, opacification of left subclavian, axillary and brachial artery with no significant stenosis, mild nodular thickening of left adrenal gland. Upper extremity duplex US showed elevation of peak systolic arterial velocity involving right external and right brachial arteries, suggest right subclavian artery stenosis, recommended CTA of right upper extremity. ? Continue monitoring ? Physical therapy ? Follow-up right upper extremity CTA HTN, HLD Patient is currently not taking her home meds. Normotensive on admission. Lipid panel: TGC 105, cholesterol 153, LDL 86 ? Continue ATORVASTATIN 80 mg HS ? Consider adding ANTIHYPERTENSIVE as indicated Subclinical hypothyroidism History of hypothyroidism TSH 7.45, free T4 1.0 normal ? Resumed home LEVOTHYROXINE 50 mcg AC BR Asymptomatic pyuria Patient urine WBC 21, positive leukocyte esterase, patient asymptomatic ? Follow-up urine culture CKD stage IIIa eGFR on admission 47 with creatinine clearance of 33.1 ? Encourage to increase oral fluid intake ? 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 Will follow up with neurology. Recommended outpatient follow-up. Health maintenance Diet: Cardiac GI prophylaxis: PROTONIX DVT prophylaxis: SCDs Antibiotics: None indicated CODE STATUS: Full code Disposition: Pending further evaluation Patient case was discussed with attending, Vitor Anders MD, and senior residents Dr. Claros and Dr. Barton. Rhett Groves DO PGYI Ms. Monteiro is a pleasant 74-year-old female admitted for syncope and stroke workup. Patient's head CT and MRI brain are negative for any acute findings. Pending echocardiogram and PT evaluation at this time. Cardiology was consulted for further evaluation of pressure difference in bilateral upper extremity. CTA chest was ordered which was negative. However was followed up with upper extremity bilateral duplex ultrasound, which was remarkable for elevation of peak systolic arterial velocities in the right external and right brachial arteries, suggestive of right subclavian artery stenosis. As per radiology and cardiology recommendations, follow-up CTA right upper extremity was ordered for further assessment. Patient's symptoms likely due to the subclavian stenosis. Stroke workup negative, will follow-up with neurology for discharge recommendations. Dispo: CT right upper extremity, for further evaluation by cardiology regarding intervention. Patient examined and case discussed with the team including attending physician. Note reviewed, I agree with the care plan as documented. - Mychal Barton MD, PGY 2
[2024-08-05] MEDS: PANTOPRAZOLE 40 MG TABLET PO (08:20)
[2024-08-05] MEDS: ASPIRIN EC 81 MG TABEC PO (08:20)
--- NOTE | 2024-08-05 08:55 | PC.SS ---
Update: EEG results are pending. Cardiology recommendations are pending.
--- NOTE | 2024-08-05 09:33 | PD.RESPRO ---
Documentation for date of: 08/05/24 Subjective Subjective Interval history: Patient was examined bedside this morning, she was comfortably sitting in bed having her breakfast, MRI showed no acute infarct. pending EEG Exam Vital Signs Temp Pulse Resp BP Pulse Ox O2 Del Method 97.0 F 69 18 118/54 L 97 Room Air 08/05/24 08:00 08/05/24 08:00 08/05/24 08:00 08/05/24 08:00 08/05/24 08:00 08/05/24 08:00 Narrative Exam GENERAL: Awake, alert and oriented. No acute distress. HEENT: Normocephalic, atraumatic and nontender.? Pupils are equal and reactive to light and accommodation.? Oral mucosa moist. NECK: Supple without adenopathy. [place] midline. Nontender, carotid pulse 2+ bilaterally without bruits, no JVD.? CHEST: Heart rate and rythm normal, no murmurs, gallops auscultated. S1 & 2 normal insensity. Nontender on palpation, no deformity and no crepitus. LUNGS: Lung sounds are clear.? No wheezing, rales or ronchi.? No intercostal subcostal retraction. Room air ABDOMEN: Soft,symmetric , nontender, no guarding or rebound tenderness. No abnormal masses palpated.? No pulsatile masses or bruits.? Bowel sounds are normoactive in all 4 quadrants. EXTREMITIES: Nontender.? No pitting edema.? No cyanosis.? Patient is able to move all 4 extremities. SKIN: No rashes noted. NEURO:? Cranial nerves intact.? There is no focalization.? GCS is 15. Objective Labs 08/05/24 06:04 08/05/24 06:04 Labs: Laboratory Results - last 24 hr 08/05/24 06:04 WBC 9.6 RBC 4.33 Hgb 13.1 Hct 39.3 MCV 91 MCH 30.3 MCHC 33.3 RDW Std Deviation 47.3 H Plt Count 222 Neut % (Auto) 50 Lymph % (Auto) 26 [place] % (Auto) 6 Eos % (Auto) 17 H Baso % (Auto) 1 Neut # (Auto) 4.8 Lymph # (Auto) 2.5 [place] # (Auto) 0.6 Eos # (Auto) 1.6 H Baso # (Auto) 0.1 Immature Gran # (Auto) 0.03 H Absolute Nucleated RBC 0.00 Immature Gran % 0 Nucleated RBC % 0 Sodium 138 Potassium 4.0 Chloride 105 Carbon Dioxide 26.0 Anion Gap 7 BUN 14 Creatinine 1.0 Estim Creat Clear Calc 40.5 L eGFR 59 L BUN/Creatinine Ratio 14 Glucose 99 Calculated Osmolality 276 Calcium 9.5 Corrected Calcium 9.5 Magnesium 1.9 Total Bilirubin 0.5 AST 27 ALT 27 Alkaline Phosphatase 89 Total Protein 7.0 Albumin 4.3 Globulin 2.7 Albumin/Globulin Ratio 1.6 Quality Measures Quality Measures none Advance care planning discussed with:: patient Assessment & Plan Assessment Current Active Medications: Generic Name Dose Route Start Last Admin Trade Name Freq PRN Reason Stop Dose Admin Acetaminophen 650 mg 08/02/24 20:05 Acetaminophen 325 Mg Tablet PO 09/01/24 20:04 Q6H PRN Pain 1-3 or Fever >100.3 Aspirin 81 mg 08/04/24 09:00 08/05/24 08:20 Aspirin Ec 81 Mg Tabec PO 09/03/24 08:59 81 mg QDAY KIRIT Administration Atorvastatin Calcium 80 mg 08/02/24 21:00 08/04/24 20:41 Atorvastatin Calcium 20 Mg Tablet PO 09/01/24 20:59 80 mg HS KIRIT Administration Levothyroxine Sodium 50 mcg 08/03/24 06:00 08/05/24 05:26 Levothyroxine Sodium 25 Mcg Tablet PO 09/02/24 05:59 50 mcg ACBR KIRIT Administration Ondansetron HCl 4 mg 08/02/24 20:10 Ondansetron Inj 2 Mg/Ml Inj 2 Ml IV 09/01/24 20:09 Q6H PRN NAUSEA OR VOMITING Protocol Pantoprazole Sodium 40 mg 08/03/24 09:00 08/05/24 08:20 Pantoprazole 40 Mg Tablet PO 09/02/24 08:59 40 mg QDAY KIRIT Administration Tramadol HCl 50 mg 08/02/24 20:10 Tramadol Hcl 50 Mg Tablet PO 08/07/24 20:09 Q6HR PRN PAIN SCALE 4-6 (Moderate Plan 74-year-old female with PMHx of HTN, HLD, presented with near syncopal episode, admitted for syncope versus TIA. CT head negative, Neurology consulted for further evaluation Syncope TIA versus vasovagal syncope Stroke workup -Presented with near syncopal episode, without fall or head trauma, back to baseline -Denies speech abnormalities or focal neurological deficits, Neuroexam normal, NIHSS score 0 -CT head and CTA head/neck negative, without acute pathology. -EKG sinus rhythm, orthostatics negative -Carotid Doppler done on 07/23 showed bilateral carotid 0-10% stenosis -Echocardiogram showed Bubble study negative for any PFO or ASD. Consider TTE if clinical suspicion is high. Normal LV size, wall thickness and normal LV function with estimated EF 50-55 %. Stage I diastolic dysfunction, RV is normal in size and systolic function. Trace MR and TR -MRI -Negative for acute hemorrhage mass effect or midline shift, No acute infarct,Mild chronic microvascular white matter change, Bilateral mastoiditis -Continue ASPIRIN 81 mg daily -Continue ATORVASTATIN 80 mg daily -Follow up EEG Patient's care discussed with attending physician, Dr Zoie Kerr MD PGY3 Attending Provider Attestation/Addendum I personally have seen and examined the patient at the bedside and I agree with resident's findings, assessment and plan of care. Reassurance given to the patient regarding the workup. Stable for discharge home And I will see her in follow-up in 2 weeks
--- NOTE | 2024-08-05 09:58 | ESPR_ITS ---
Documentation for date of: 08/05/24 Subjective Subjective Interval history: Patient was seen at bedside this morning. No overnight events. Patient does not have any cardiac complaints at this time. Patient had CTA of upper right extremity done this morning did not show stenosis in the subclavian or axillary artery. Potassium 4 and magnesium 1.9, recommend to replete potassium magnesium to keep above 4 and 2 respectively. Echo done on 08/02/2024 had the following findings. Bubble study negative for any PFO or ASD. Consider TTE if clinical suspicion is high. Normal LV size, wall thickness and normal LV function with estimated EF 50-55 %. Stage I diastolic dysfunction RV is normal in size and systolic function. Trace MR and TR Okay to discharge from cardiology standpoint, please have patient follow up outpatient at my office for further syncope workup. Exam Vital Signs Temp Pulse Resp BP Pulse Ox O2 Del Method 97.0 F 82 18 98/58 L 97 Room Air 08/05/24 08:00 08/05/24 09:53 08/05/24 08:00 08/05/24 09:53 08/05/24 08:00 08/05/24 08:00 Narrative Exam General: A/O x3, no acute distress, well-nourished, well-developed Eyes: PERRL, EOMI. Anicteric, vision grossly intact R Eye medially deviated. Ears: No ear pain, no ear discharge, Hearing grossly intact. Nose: No nasal discharge. Mouth/Throat: Moist mucous membranes, no redness, no lesions. Neck: Neck supple, non-tender, no cervical lymphadenopathy. Lungs: Clear [place] to auscultation and percussion, No accessory muscle use. Cardio: Normal S1/S2, regular rhythm, no murmurs, no JVD. Abdomen: Soft, non-tender, no palpable masses, peristalsis present, no guarding or rebound. Extremities: Symmetrical, no significant deformities, no peripheral edema , non-tender, peripheral pulses presents. Skin: No rashes, no lesions, warm to touch. Neuro: No focal neurological deficits. motor and sensory intact. Psych: Cooperative, appropriate mood and effect. Objective Labs 08/05/24 06:04 08/05/24 06:04 Labs: Laboratory Results - last 24 hr 08/05/24 06:04 WBC 9.6 RBC 4.33 Hgb 13.1 Hct 39.3 MCV 91 MCH 30.3 MCHC 33.3 RDW Std Deviation 47.3 H Plt Count 222 Neut % (Auto) 50 Lymph % (Auto) 26 [place] % (Auto) 6 Eos % (Auto) 17 H Baso % (Auto) 1 Neut # (Auto) 4.8 Lymph # (Auto) 2.5 [place] # (Auto) 0.6 Eos # (Auto) 1.6 H Baso # (Auto) 0.1 Immature Gran # (Auto) 0.03 H Absolute Nucleated RBC 0.00 Immature Gran % 0 Nucleated RBC % 0 Sodium 138 Potassium 4.0 Chloride 105 Carbon Dioxide 26.0 Anion Gap 7 BUN 14 Creatinine 1.0 Estim Creat Clear Calc 40.5 L eGFR 59 L BUN/Creatinine Ratio 14 Glucose 99 Calculated Osmolality 276 Calcium 9.5 Corrected Calcium 9.5 Magnesium 1.9 Total Bilirubin 0.5 AST 27 ALT 27 Alkaline Phosphatase 89 Total Protein 7.0 Albumin 4.3 Globulin 2.7 Albumin/Globulin Ratio 1.6 Quality Measures Quality Measures none Advance care planning discussed with:: patient Assessment & Plan Assessment Current Active Medications: Generic Name Dose Route Start Last Admin Trade Name Freq PRN Reason Stop Dose Admin Acetaminophen 650 mg 08/02/24 20:05 Acetaminophen 325 Mg Tablet PO 09/01/24 20:04 Q6H PRN Pain 1-3 or Fever >100.3 Aspirin 81 mg 08/04/24 09:00 08/05/24 08:20 Aspirin Ec 81 Mg Tabec PO 09/03/24 08:59 81 mg QDAY KIRIT Administration Atorvastatin Calcium 80 mg 08/02/24 21:00 08/04/24 20:41 Atorvastatin Calcium 20 Mg Tablet PO 09/01/24 20:59 80 mg HS KIRIT Administration Levothyroxine Sodium 50 mcg 08/03/24 06:00 08/05/24 05:26 Levothyroxine Sodium 25 Mcg Tablet PO 09/02/24 05:59 50 mcg ACBR KIRIT Administration Ondansetron HCl 4 mg 08/02/24 20:10 Ondansetron Inj 2 Mg/Ml Inj 2 Ml IV 09/01/24 20:09 Q6H PRN NAUSEA OR VOMITING Protocol Pantoprazole Sodium 40 mg 08/03/24 09:00 08/05/24 08:20 Pantoprazole 40 Mg Tablet PO 09/02/24 08:59 40 mg QDAY KIRIT Administration Tramadol HCl 50 mg 08/02/24 20:10 Tramadol Hcl 50 Mg Tablet PO 08/07/24 20:09 Q6HR PRN PAIN SCALE 4-6 (Moderate Plan 74-year-old female with past medical history of hypertension, hyperlipidemia, TIA, and hypothyroidism was admitted to the hospital on 08/02/2024 due to syncopal episode concerning for possible stroke versus TIA. 1. Syncope 2. Possible subclavian steal syndrome? 3. Heart failure with preserved ejection fraction (50-55% EF) ?Patient has been having syncopal episodes for the last year in which from history taking these to happen when patient raises her right arm. ? Duplex scan of upper extremity arteries which showed concerns for stenosis in the right subclavian artery given elevation of peak systolic arterial velocities in the right axillary and right brachial arteries ?Carotid Doppler on 07/23/2024 did not show any stenosis of the right or left internal carotid arteries. ?Patient has been having variability in blood pressures between arms -Echo done on 08/02/2024 had the following findings. Bubble study negative for any PFO or ASD. Consider TTE if clinical suspicion is high. Normal LV size, wall thickness and normal LV function with estimated EF 50-55 %. Stage I diastolic dysfunction RV is normal in size and systolic function. Trace MR and TR -Patient had CTA of upper right extremity done this morning did not show stenosis in the subclavian or axillary artery. Plan: -Okay to discharge from cardiology standpoint, please have patient follow up outpatient at my office for further syncope workup. ?No need for diuresis as patient seems euvolemic 3. Essential hypertension ?Patient's blood pressure has been under control ? Most current blood pressure was 118/65. Plan: ?Will consider adding on antihypertensive medication if patient's blood pressure does increase 4. Stroke rule out 5. Hyperlipidemia 6. Hypothyroidism ? Continue management per primary care team Continue rest of management as per primary team. We are grateful to be able to participate in Mrs. Roa's care. Thank you for the consult Plan of care discussed with attending Mail Superintendent, Dr Audrey Wang MD PGY-1 Attending Provider Attestation/Addendum I have personally seen and examined the patient separately on the above date of service and discussed the plan of care with the resident. I reviewed the resident Dr. Palm consultation progress note and agree with the resident findings and plan in the note above and have also edited the documentation to reflect my findings and plan. Patient had CTA of upper right extremity done this morning did not show stenosis in the subclavian or axillary artery. Okay to discharge from cardiology standpoint, please have patient follow up outpatient at my office for further syncope workup. Bong Ventura M.D. Interventional Cardiology
--- NOTE | 2024-08-05 14:56 | PC.SS ---
Rounding Note: CTA report remains pending. Possible discharge today.
--- NOTE | 2024-08-05 15:59 | ESDS_ITS ---
<Statement entered by Mychal Barton MD - 08/05/24 16:24> Patient was examined with the team including attending physician. Note reviewed, I agree with the discharge plan as documented. - Mychal Barton MD, PGY 2 Planned Discharge Date 08/05/24 DS: Providers Provider Date of admission: 08/05/24 08:06 Primary care physician: Bar Bates MD Admitting Provider: Bladimir Cobian MD Attending Provider on Admission: Vitor Anders MD Consults: 08/02/24 20:24 Consult to Neurology / Tele-Neurology Routine Comment: Consulting Provider: Reinaldo Lino Referral Physical Therapy Routine Comment: Physician Instructions: Referral Speech Therapy Urgent Comment: 08/03/24 13:28 Referral Physical Therapy Routine Comment: Physician Instructions: 08/04/24 09:43 Consult to Cardiology Routine Comment: Possible R subclavian stenosis Consulting Provider: oBng Ventura Attending Provider on DC: Vitor Andres MD Discharging Provider: Vitor Anders MD DS: Diagnosis Problem List Completed Was Problem List Reviewed/Reconciled?: Yes Hospital Course Hospital Course Hospital course: This is a 74-year-old female with PMHx of HTN, HLD, presented with near syncopal episode, admitted for syncope versus TIA. Initial CT head and CTA head/neck negative for acute hemorrhage, mass effect or midline shift, neck arterial stenosis, cerebral large vessel arterial occlusion or thrombus. Follow-up MRI done 2 days later also negative for acute hemorrhage, mass effect or midline shift or infarct. MRI did show chronic microvascular white matter changes and bilateral mastoiditis, however patient asymptomatic for mastoiditis. Mastoiditis less likely to be a culprit most likely chronic, secondary to recurrent ear infection. Echocardiogram was negative for PFO or or bubble study. EEG was done, results to be followed up by neurology outpatient. Neurology started ASPIRIN, ATORVASTATIN and will continue outpatient. Risk and benefits of ANTIPLATELET therapy discussed with patient. Patient agreed prior to starting therapy. Patient also suspected for right upper extremity arterial stenosis as she was found to have a systolic blood pressure difference between her right and left upper arms, greater than 20. Upper extremity Doppler ultrasound showed elevation of peak systolic arterial velocities involving right axillary right brachial arteries. CTA right upper extremity however showed no significant subclavian or axillary stenosis. Patient will follow-up with cardiology outpatient for further evaluation. Patient was stable at the time of discharge without residual symptoms. Patient was cleared by physical therapy, deemed independent with gait and mobility. No additional physical therapy recommended. PATIENT INSTRUCTIONS: Follow-up with PCP within 1 week of discharge. Follow-up with neurology, Dr. Lino, within 1 week of discharge. Follow-up with cardiology, Dr. Ventura, within 1-2 weeks of discharge. Return to Emergency Room if symptoms persist, worsen, or new symptoms develop. Continue taking medications as prescribed below: ? ATORVASTATIN 80 mg once daily at night ? ASPIRIN 81 mg once daily ? Seaside-3 fish oil 1 tablet twice daily. ? Cranberry 1000 mg capsules daily ? LEVOTHYROXINE 50 mcg every morning, as prescribed ? VITAMIN D 25 mcg once daily ADMISSION DIAGNOSES: Syncope TIA versus vasovagal syncope Stroke workup Inter arm difference in blood pressure ? 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 Will follow up with neurology. Recommended outpatient follow-up. Patient case was discussed with attending, Vitor Anders MD, and senior residents Dr. Claros and Dr. Barton. Rhett Groves DO PGYI Time Spent with Patient Time attestation: Total time spent providing and/or coordinating discharge services: > 35 minutes. Exam Vital Signs Temp Pulse Resp BP Pulse Ox O2 Del Method 96.7 F L 66 18 120/70 99 Room Air 08/05/24 15:40 08/05/24 15:40 08/05/24 15:40 08/05/24 15:40 08/05/24 15:40 08/05/24 15:40 Narrative Exam GENERAL: Normal revealing elderly female, NAD, on room air HEENT: NCAT.?MAHENDRA. Oral mucosa is moist. Patent Nares NECK: Supple, nontender, no thyromegaly, no meningismus, no JVD, no step offs CHEST: Symmetrical, atraumatic, and with equal expansion, Nontender on palpation no deformity and no crepitus. CARDIOVASCULAR: RRR, no m/g/r LUNGS: CTAB, no w/r/r. Symmetrical chest rise. No intercostal subcostal retraction. ABDOMEN: Soft, flat, nontender. No guarding/rebound tenderness/masses. +BS EXTREMITIES: Nontender.? No edema/cyanosis.?Moves all 4 extremities well, with full ROM and good CSM. SKIN: Warm and dry, no jaundice/rashes. MSK: No lumbar or midline, no CVA, no paraspinal muscle spasm or tenderness. NEURO: MORGAN x4, CN II-XII grossly intact.?No focal neurologic deficits. PSYCHIATRIC: Normal mood and affect, cooperative, no SI or HI or hallucinations. Discharge Plan Plan Patient Disposition: HOME (Self Care) Patient condition on transfer: Stable Prescriptions/Referrals Prescriptions/Med Rec: New aspirin 81 mg capsule 81 mg PO QDAY 30 Days Qty: 30 0RF atorvastatin 80 mg tablet 80 mg PO QPM 30 Days Qty: 30 0RF Continued omega-3 fatty acids-fish oil 684-1,200 mg Capsule,Delayed Release(Dr/Ec) 1 cap PO BID levothyroxine 25 mcg Capsule 50 mcg PO QDAY cranberry 1,000 mg Capsule 1,200 mg PO QDAY Rx Instructions: administer with meals cholecalciferol (vitamin D3) [Vitamin D3] 25 mcg (1,000 unit) Tablet,Chewable 25 mcg PO QDAY No Action atorvastatin 40 mg Tablet 80 mg PO QDAY Referrals: Bar Bates MD [Primary Care Provider] - Patient/Caregiver Discharge Instructions Meds to Beds: Yes Discharge Activity: resume usual activities Other Discharge Activity Instructions:: Follow-up with PCP within 1 week of discharge. Follow-up with neurology, Dr. Lino, within 1 week of discharge. Follow-up with cardiology, Dr. Ventura, within 1-2 weeks of discharge. Return to Emergency Room if symptoms persist, worsen, or new symptoms develop. Continue taking medications as prescribed below: ? ATORVASTATIN 80 mg once daily at night ? ASPIRIN 81 mg once daily ? Seaside-3 fish oil 1 tablet twice daily. ? Cranberry 1000 mg capsules daily ? LEVOTHYROXINE 50 mcg every morning, as prescribed ? VITAMIN D 25 mcg once daily Education Materials: What Is a TIA?, 5 Steps for Eating Healthier, Discharge Instructions for Stroke Print Language: Yoruba Stand Alone Forms: Taty Award Info., Patient Portal Info Letter Discharge Order Discharge Orders: Discharge (Routine); Ordered 08/05/24 Ordered By: Mychal Barton Quality Discharge Quality Measures VTE prophylaxis Attestestation Attestation I reviewed labs, imaging, EKG, home medications and prior available records. Face to face evaluation was performed by me. I have personally examined the patient and discussed assessment and plan with the IM team. I reviewed the resident note and agree with the plan with exceptions as below. CVA symptoms TIA Syncope, unclear etiology CKD stage IIIa Continue aspirin and atorvastatin Orthostatic vital signs are negative Follow-up brain MRI, EEG, and echocardiogram: Echocardiogram showed preserved EF and negative bubble study. MRI showed no CVA but possible chronic mastoiditis however patient has no symptoms of that. Follow-up CTA of right upper extremity to rule out subclavian artery stenosis: Showed no stenosis. Monitor kidney function. Avoid nephrotoxins. Renally dosed medications Patient's daughter Olga was updated over the phone Time spent is 40 minutes. More than 50% of the time was spent on patient education and coordination of care.
--- NOTE | 2024-08-05 17:23 | XR_ITS ---
Examination: CTA right upper extremity with intravenous contrast 2-D reconstructions 3-D reconstructions, vascular Date and time of exam: August 05, 2024 0756 hours INDICATIONS: Diagnosis subclavian steal syndrome, differential blood pressures in the extremities, elevation peak systolic velocity right axillary right brachial arteries on arterial Doppler sonogram August 03, 2024 CTDI: vol (mGy) 7.14 DLP: (mGycm) 196 Technique: Multiple axial sections of the thorax have been obtained. 3 mm slice thickness, from below the hemidiaphragms to above the apices of the lungs. Mediastinal and lung density settings have been obtained. 2-D sagittal and coronal reconstructions. 3-D angiographic renderings, 3-D volume renderings, 3D post processing, vascular maximum intensity projections obtained. Contrast administered is 100 cc Isovue-370. Low dose protocols were performed. One or more of the following dose reduction techniques were used; automated exposure control, adjustment of the mA and/or KV according to patient size, use of iterative reconstruction technique. Findings: No significant stenoses noted involving right subclavian right axillary for right brachial artery Decreased opacification involving the radial and ulnar arteries IMPRESSION: No significant subclavian or axillary stenosis noted
--- NOTE | 2024-08-05 19:26 | PC.NURSE ---
Patient verbalized understanding of new medications. Patient verbalized that has atorvastatin at home still and will take 80mg night dose and can pick up attendant new prescription tomorrow morning.
--- NOTE | 2024-08-05 23:31 | PD.VPROG1 ---
Telemedicine visit statement This visit was conducted with the use of interactive audio and video telecommunications system that permits real time communication between the patient and the provider. Patient's verbal consent for virtual visit was obtained on 08/05/24 at 2331. Documentation for date of: 08/05/24 Virtual exam Vital Signs Temp Pulse Resp BP Pulse Ox O2 Del Method 97 F 71 18 143/93 H 99 Room Air 08/05/24 18:30 08/05/24 18:30 08/05/24 18:30 08/05/24 18:30 08/05/24 18:30 08/05/24 18:30 Objective Labs 08/05/24 06:04 08/05/24 06:04 Labs: Laboratory Results - last 24 hr 08/05/24 06:04 WBC 9.6 RBC 4.33 Hgb 13.1 Hct 39.3 MCV 91 MCH 30.3 MCHC 33.3 RDW Std Deviation 47.3 H Plt Count 222 Neut % (Auto) 50 Lymph % (Auto) 26 Swain % (Auto) 6 Eos % (Auto) 17 H Baso % (Auto) 1 Neut # (Auto) 4.8 Lymph # (Auto) 2.5 Swain # (Auto) 0.6 Eos # (Auto) 1.6 H Baso # (Auto) 0.1 Immature Gran # (Auto) 0.03 H Absolute Nucleated RBC 0.00 Immature Gran % 0 Nucleated RBC % 0 Sodium 138 Potassium 4.0 Chloride 105 Carbon Dioxide 26.0 Anion Gap 7 BUN 14 Creatinine 1.0 Estim Creat Clear Calc 40.5 L eGFR 59 L BUN/Creatinine Ratio 14 Glucose 99 Calculated Osmolality 276 Calcium 9.5 Corrected Calcium 9.5 Magnesium 1.9 Total Bilirubin 0.5 AST 27 ALT 27 Alkaline Phosphatase 89 Total Protein 7.0 Albumin 4.3 Globulin 2.7 Albumin/Globulin Ratio 1.6
== END 2024-08-05 18:43 | disposition home or self-care (01) | DRG 312 ==
LOC: SERX 19:49 → S2NX 08-03 16:19 → SERHOLD 08-04 12:54 → S2NX 08-04 12:54
PROVIDERS: Nurse Practitioner Family; Student in an Organized Health Care Education/Training Program; Admitting Provider Internal Medicine; Emergency Provider Emergency Medicine; PCP Family Medicine; Visit Provider Student in an Organized Health Care Education/Training Program
DX: R55 Syncope and collapse (principal); I13.0 Hypertensive heart and chronic kidney disease with heart failure and stage 1 through stage 4 chronic kidney disease, or unspecified chronic kidney disease; I50.30 Unspecified diastolic (congestive) heart failure; E78.5 Hyperlipidemia, unspecified; N18.31 Chronic kidney disease, stage 3a; E03.8 Other specified hypothyroidism; H50.00 Unspecified esotropia; Z79.890 Hormone replacement therapy; H70.93 Unspecified mastoiditis, bilateral
CPT/HCPCS: 36415; 70450; 70496; 70498; 70553; 71275; 73206; 80053; 80061; 80307; 81001; 83036; 83735; 84439; 84443; 84484; 84703; 85025; 85610; 85730; 87086; 92610; 93005; 93306; 93930; 95816; 97161; 99285; A4649; A9579; G0378; J7050; Q9967; A9270

== ENCOUNTER 2024-12-07 11:27 | Emergency (ER) | payer MEDICARE, MEDICAID, SELFPAY ==
--- NOTE | 2024-12-07 11:40 | PD.EDADULT ---
ED General RME/HPI General Chief complaint: Abdominal Pain Stated complaint: ABD PAIN Time Seen by Provider: 12/07/24 11:36 Arrival date/time: 12/07/24 11:27 CC: Abdominal pain with diarrhea HPI also black stools HPI ongoing for the past 4 days. Patient denies fever chills chest pain shortness of breath or difficulty breathing patient presents the ER via EMS who reports stable vital signs. Patient states she has been using Pepto-Bismol for the last 3 days. Related Data Home Medications ?Medication ?Instructions ?Recorded ?Confirmed atorvastatin 40 mg tablet 80 mg PO QDAY 11/24/20 08/02/24 levothyroxine 25 mcg capsule 50 mcg PO QDAY 01/18/23 08/02/24 omega-3 fatty acids-fish oil 684 1 cap PO BID 01/18/23 08/02/24 mg-1,200 mg capsule,delayed release cholecalciferol (vitamin D3) 25 25 mcg PO QDAY 01/19/23 08/02/24 mcg (1,000 unit) chewable tablet (Vitamin D3) cranberry 1,000 mg capsule 1,200 mg PO QDAY 01/19/23 08/02/24 Previous Rx's ?Medication ?Instructions ?Recorded ciprofloxacin HCl 500 mg tablet 500 mg PO BID #14 tabs 12/07/24 (Cipro) dicyclomine 20 mg tablet 20 mg PO BID #20 tabs 12/07/24 metronidazole 500 mg tablet 500 mg PO BID #14 tabs 12/07/24 Allergies Allergy/AdvReac Type Severity Reaction Status Date / Time nitrofurantoin (From Allergy Severe Diarrhea Verified 12/07/24 12:01 Macrobid) Penicillins Allergy Severe HIVES Verified 12/07/24 12:01 Sulfa (Sulfonamide Allergy Severe ABD PAIN Verified 12/07/24 12:01 Antibiotics) Review of Systems Review of Systems Narrative Review of Systems: GEN: No fever, no chills, no weight loss EYES: No discharge, no visual changes, no pain HEENT: No ear pain, no congestion, no sore throat PULM: No shortness of breath, no cough, no congestion CV: No chest pain, no dyspnea on exertion, no palpitations GI: No nausea, no vomiting, + diarrhea, no pain, no constipation : No frequency, no urgency, no dysuria MUSC/SKEL: No joint pain, no back pain SKIN: No rash PSYCH: No hallucinations, no depression HEME/LYMPH: No easy bleeding or bruising tendencies NEURO: No weakness, no headache Past Medical History Past Medical History NEUROLOGIC: Positive Neurological Disorders and Head Trauma (piece of wood hit head, make right eye bleed. 2005); Negative Seizures CARDIAC: Positive Hypercholesterolemia and Hypertension; Negative Cardiac Disorders or Congestive Heart Failure RESPIRATORY: Positive Asthma (asthma), Bronchitis and Pneumonia; Negative Chronic Obstructive Pulmonary Disease (COPD) GASTROINTESTINAL: Positive Gastrointestinal Disorders, Hemorrhoids and Obesity; Negative Hepatitis GENITOURINARY: Negative Genitourinary Disorders or Renal Disease REPRODUCTIVE: Positive Previous Pregnancies; Negative Pelvic Inflammatory Disease MUSCULOSKELETAL: Positive Musculoskeletal Disorders and Arthritis ENT: Positive Cataracts (left 7 yrs ago), Ear Infection and Head Trauma (piece of wood hit head, make right eye bleed. 2005) ENDOCRINE: Positive Endocrine Disorders and Hypothyroidism; Negative Diabetes Mellitus Type 1 or Diabetes Mellitus Type 2 HEMATOLOGIC: Negative Blood Disorders, Anemia or Sickle Cell Disease PSYCHO/SOCIAL: Positive Depression (no meds) OTHER HISTORY: Positive Hospitalization (UTI,), Measles and Cancer; Negative Autoimmune Disease, Shingles, Blood Transfusions, Anesthesia Reactions or MRSA Family History FAMILY HISTORY: Positive Family Cardiac Disorders, Family Cancer and Family Surgery; Negative Family Psychiatric Problems, Family Respiratory Disorders, Family Gastrointestinal Problems or Family Anesthesia Reaction Surgical History SURGICAL: Positive Eye Surgery (right was bleeding) Social History SMOKING STATUS: Current every day smoker SECOND HAND EXPOSURE: No ED Exam Narrative Physical exam: [General: Not in any acute distress Head normocephalic HEENT: Within acceptable limits Neck is supple nontender Chest equal chest rise nontender to palpation Respiratory: Clear to auscultation no wheezes crackles or rubs CV: Rate rhythm is regular no murmurs rubs or clicks Abdomen is soft nontender no masses positive bowel sounds all 4 quadrants Back: No CVA tenderness no spinous process tenderness from cervical spine thoracic and lumbar spine Skin: Intact no petechiae rash induration ulceration or crepitus Extremities: Moving all extremity against resistance cap refill less than 2 seconds neurosensory intact Neuro: Awake alert oriented x3 Glascow coma 15 no focal deficits] Course Quality Measures none Orders Category Date Time Status CT abdomen pelvis wo con Stat Exams 12/07/24 13:19 Completed CBC Stat Lab 12/07/24 12:24 Completed CMP [Comprehensive Metabolic Panel] Stat Lab 12/07/24 12:24 Completed Lipase Stat Lab 12/07/24 12:24 Completed Urinalysis, C/S if Indicated Stat Lab 12/07/24 12:47 Completed Vital Signs Vital signs: Vital Signs Temperature 98.1 F 12/07/24 12:10 Pulse Rate 64 12/07/24 12:10 Respiratory Rate 18 12/07/24 12:10 Blood Pressure 104/66 12/07/24 12:10 Pulse Oximetry (%) 98 12/07/24 12:10 Oxygen Delivery Method Room Air 12/07/24 12:10 Discharge Plan Plan Patient Disposition: HOME (Self Care) Patient condition on transfer: Stable Prescriptions/Referrals Prescriptions/Med Rec: New ciprofloxacin HCl [Cipro] 500 mg tablet 500 mg PO BID Qty: 14 0RF metronidazole 500 mg tablet 500 mg PO BID Qty: 14 0RF dicyclomine 20 mg tablet 20 mg PO BID Qty: 20 0RF No Action atorvastatin 40 mg Tablet 80 mg PO QDAY omega-3 fatty acids-fish oil 684-1,200 mg Capsule,Delayed Release(Dr/Ec) 1 cap PO BID levothyroxine 25 mcg Capsule 50 mcg PO QDAY cranberry 1,000 mg Capsule 1,200 mg PO QDAY Rx Instructions: administer with meals cholecalciferol (vitamin D3) [Vitamin D3] 25 mcg (1,000 unit) Tablet,Chewable 25 mcg PO QDAY Referrals: Esther Cha PA-C [Primary Care Provider] - In 1 week Problem List Clinical Impression: Colitis Patient/Caregiver Discharge Instructions Education Materials: Understanding Colitis, ED Diet, [place] (Adult) Additional Instructions: Rest drink plenty of fluids take the medications as prescribed follow-up with your primary care provider if there is worsening of symptoms spite of medications return the emergency room for reevaluation. Print Language: Amharic Stand Alone Forms: Vittana Award Info., Work/School Release, Patient Portal Info Letter SUPRIYA/JENNY Supervising Physician SUPRIYA/JENNY Supervising Physician: Arnold Dash ENP MDM Patient Acuity High Acuity (complete MDM) Chronic Illness/Social Conditions which may negatively complicate care or outcome(s)-explain: None or not applicable Explain: CBC shows no acute leukocytosis anemia thrombocytopenia and CMP shows no significant electrolyte imbalances renal impairment transaminitis or T. bili elevation Urine is negative CT abdomen pelvis is positive for mild colitis. EKG EKG not done Labs Labs: Interpreted by me Imaging Imaging interpretation: Interpreted by me Imaging Interpretation(s): Mild colitis Medication Administration(s) none Diagnosis Differential Diagnosis ED Complaint MDM: Colitis diverticulitis ileus
[2024-12-07 12:01] VITALS: PULSE 114; RESP 22; O2SAT 93; BMI 27.2
[2024-12-07 12:10] VITALS: BP 104/66; PULSE 64; RESP 18; TEMP 36.7; O2SAT 98
[2024-12-07 12:37] LABS: Basophils # (Auto) 0.1 Thou/mm3 (0.0-0.2); Basophils % (Auto) 1 % (0-2.5); Eosinophils # (Auto) 1.5 Thou/mm3 (0.0-0.5); Eosinophils % (Auto) 14 % (0-10); Hematocrit 42.4 % (36.0-46.0); Hemoglobin 14.3 g/dL (12.0-16.0); Immature Granulocytes % (Auto) 0 % (0-0); Immature Granulocytes Auto 0.03 Thou/mm3 (0.00-0.00); Lymphocytes # (Auto) 2.6 Thou/mm3 (1.0-4.8); Lymphocytes % (Auto) 25 % (10-50); Mean Corpuscular HGB Conc 33.7 g/dl (31.0-37.0); Mean Corpuscular Hemoglobin 30.8 pg (25.0-35.0); Mean Corpuscular Volume 91 fL (80-100); Monocytes # (Auto) 0.4 Thou/mm3 (0.0-0.8); Monocytes % (Auto) 4 % (0-12); Neutrophils # (Auto) 5.8 Thou/mm3 (1.8-7.7); Neutrophils % (Auto) 55 % (37-80); Nucleated Red Blood Cell % 0 /100 WBC (0); Platelet Count 286 Thou/mm3 (140-440); RDW Standard Deviation 46.5 fL (36.4-46.3); Red Blood Count 4.65 Miln/mm3 (4.00-5.20); White Blood Count 10.5 Thou/mm3 (3.6-11.0)
[2024-12-07 12:51] LABS: Collection Type, Urine Clean Catch
[2024-12-07 12:58] LABS: Alanine Aminotransferase 18 U/L (10-49); Albumin, Serum 4.3 gm/dL (3.4-4.8); Albumin/Globulin Ratio 1.4 (1.2-2.2); Alkaline Phosphatase 78 U/L (46-116); Anion Gap 7 (7-16); Aspartate Amino Transferase 29 U/L (0-34); BUN/Creatinine Ratio 13 Ratio (12-20); Bilirubin,Total 0.6 mg/dL (0.3-1.2); Blood Urea Nitrogen 13 mg/dL (9-23); Chloride 108 mMol/L (98-107); Estimated Creatinine Clearance 38.7 mL/min (>60); Glucose 97 mg/dL (74-106); Lipase 40 U/L (12-53); Osmolality,Calculated 285 (275-295); Potassium 4.1 mMol/L (3.4-5.1); Sodium 143 mMol/L (136-145); Total Protein 7.3 gm/dL (5.7-8.2); eGFR 59 See Note
[2024-12-07 13:01] LABS: Bacteria,Urine Rare; Bilirubin,Urine Negative (Negative); Blood,Urine Negative (Negative); Clarity,Urine Clear (Clear/Hazy); Color,Urine Colorless (Lt Yel-Yel); Culture Indicated,Urine Not Indicated; Glucose, Urine Negative (Negative); Ketones,Urine Negative (Negative); Leukocyte Esterase,Urine Negative (Negative); Nitrite,Urine Negative (Negative); PH,Urine 6.5 (5.0-7.0); Protein,Urine Negative (Neg - Trace); RBC,Urine < 1 /hpf (0-3); Specific Gravity,Urine 1.005 (1.001-1.035); Squamous Epithelial Cell,Urine 2 /hpf (0-5); Urobilinogen,Urine Negative mg/dL (0.0-1.0); WBC,Urine 1 /hpf (0-5)
--- NOTE | 2024-12-07 13:19 | XR_ITS ---
Examination: CT abdomen and pelvis without contrast. Coronal 3-D reconstructions. Sagittal 2-D reconstructions. Date and time of exam:December 12 at 2024 at 1336 hrs. Indications: Generalized abdominal pain with nausea vomiting today CTDI: vol (mGy): 6.81 DLP: (mGycm): 368 Technique: Axial images of the abdomen have been obtained, 3 mm slice thickness Intravenous contrast material has not been administered. Low dose protocols were performed. One or more of the following dose reduction techniques were used; automated exposure control, adjustment of the mA and/or KV according to patient size, use of iterative reconstruction technique. Findings: Diffuse fatty infiltration throughout the liver Contracted gallbladder no gallstones No pancreatic mass or peripancreatic edema Spleen not in large No hydronephrosis or ureteral calculi. Aorta normal size The entire colon shows mild wall thickening No pericecal inflammatory change No diverticulitis No pelvic mass Urinary bladder intact Moderate osteopenia Impression: Mild diffuse nonspecific colitis pattern No renal or ureteral calculi, no hydronephrosis No CT findings of bowel obstruction or diverticulitis
== END 2024-12-07 16:35 | disposition home or self-care (01) ==
PROVIDERS: Registered Nurse General Practice; Emergency Provider Family Medicine; PCP Physician Assistant Medical
DX: K52.9 Noninfective gastroenteritis and colitis, unspecified (principal)
CPT/HCPCS: 36415; 74176; 80053; 81001; 83690; 85025; 99284

== ENCOUNTER → 2025-01-09 | Outpatient (CLI) | payer MEDICARE, MEDICAID, SELFPAY ==
--- NOTE | 2025-01-09 10:30 | XR_ITS ---
Examination: Breast ultrasound, unilateral, left complete Date and time of exam: January 09, 2025 1007 hours INDICATIONS: History palpable lump left breast, left breast sonogram April 25, 2024 8:00 nodule 10 x 9 mm Technique: Real-time foster scale ultrasonographic imaging performed left breast including all 4 quadrants as well as nipple retroareolar and axillary region. Findings: 8:00 nodule hypoechoic circumscribed 10 x 9 mm 10:00 cyst 3 x 3 mm 10:00 cyst 3 x 3 mm 10:00 cyst 3 x 3 mm 10:00 cyst 5 x 5 mm 2:00 nodule hyperechoic 9 x 9 mm IMPRESSION: BI-RADS Category 3: Probably benign findings One additional 6 month left breast sonogram follow-up is needed to document stability of 2 probably benign lipoma as described above
== END | disposition home or self-care (01) ==
PROVIDERS: PCP Physician Assistant Medical; Referring Provider Physician Assistant Medical; Visit Provider Physician Assistant Medical
DX: R92.8 Other abnormal and inconclusive findings on diagnostic imaging of breast (principal)
CPT/HCPCS: 76641

== ENCOUNTER 2025-02-02 16:00 | Emergency (ER) | payer MEDICARE, MEDICAID, SELFPAY ==
--- NOTE | 2025-02-02 16:06 | EKG_ITS ---
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
--- NOTE | 2025-02-02 16:06 | XR_ITS ---
Examination: AP chest single view Technique one AP portable upright chest single view Date and time: February 02, 2025, 1644 hours INDICATIONS: Syncopal episodes and weakness today. FINDINGS: Normal heart size. Lungs are clear. The osseous structures are intact IMPRESSION: No active disease
[2025-02-02 16:07] VITALS: BP 136/83; PULSE 74; RESP 20; TEMP 36.8; O2SAT 99
[2025-02-02 16:08] VITALS: PULSE 74; O2SAT 96; BMI 27.0
[2025-02-02 16:16] VITALS: BP 191/102; PULSE 98; RESP 29; TEMP 37.5; O2SAT 98
--- NOTE | 2025-02-02 16:40 | PC.NURSE ---
PT AMBULATED INDEPENDENTLY TO BR, DENIES ANY DIZZINESS WHEN UP TO BR, HOWEVER DID STATE THAT HER HEAD HURT MORE WHEN SHE STOOD UP.
[2025-02-02 16:48] LABS: Collection Type, Urine Clean Catch
[2025-02-02 17:17] LABS: Bacteria,Urine Rare; Bilirubin,Urine Negative (Negative); Blood,Urine Negative (Negative); Clarity,Urine Turbid (Clear/Hazy); Color,Urine Lt-Yellow (Lt Yel-Yel); Culture Indicated,Urine Contaminated; Glucose, Urine Negative (Negative); Ketones,Urine Negative (Negative); Leukocyte Esterase,Urine Positive (Negative); Nitrite,Urine Negative (Negative); Protein,Urine Negative (Neg - Trace); RBC,Urine 3 /hpf (0-3); Specific Gravity,Urine 1.017 (1.001-1.035); Squamous Epithelial Cell,Urine 17 /hpf (0-5); Urobilinogen,Urine Negative mg/dL (0.0-1.0); WBC,Urine 30 /hpf (0-5)
[2025-02-02 17:31] LABS: Basophils # (Auto) 0.1 Thou/mm3 (0.0-0.2); Basophils % (Auto) 1 % (0-2.5); Eosinophils % (Auto) 18 % (0-10); Hematocrit 41.8 % (36.0-46.0); Hemoglobin 14.1 g/dL (12.0-16.0); Immature Granulocytes % (Auto) 0 % (0-0); Immature Granulocytes Auto 0.03 Thou/mm3 (0.00-0.00); Lymphocytes # (Auto) 3.2 Thou/mm3 (1.0-4.8); Lymphocytes % (Auto) 29 % (10-50); Mean Corpuscular HGB Conc 33.7 g/dl (31.0-37.0); Mean Corpuscular Hemoglobin 30.7 pg (25.0-35.0); Mean Corpuscular Volume 91 fL (80-100); Monocytes # (Auto) 0.7 Thou/mm3 (0.0-0.8); Monocytes % (Auto) 6 % (0-12); Neutrophils # (Auto) 5.2 Thou/mm3 (1.8-7.7); Neutrophils % (Auto) 46 % (37-80); Nucleated Red Blood Cell % 0 /100 WBC (0); Platelet Count 225 Thou/mm3 (140-440); RDW Standard Deviation 47.6 fL (36.4-46.3); Red Blood Count 4.59 Miln/mm3 (4.00-5.20); White Blood Count 11.1 Thou/mm3 (3.6-11.0)
--- NOTE | 2025-02-02 17:33 | XR_ITS ---
Examination: CT brain head without contrast. 2-D sagittal coronal reconstructions Date and time of exam:February 02, 2025 8002 hours, comparison August 02, 2024 INDICATIONS: Ground-level fall today with injury to head, head pain CTDI: vol (mGy):47.6 DLP: (mGycm):947 Technique: Multiple CT axial sections of the brain have been obtained, 5 mm slice thickness. Contrast has not been administered. 2-D sagittal, coronal reconstructions have been obtained Low dose protocols were performed. One or more of the following dose reduction techniques were used; automated exposure control, adjustment of the mA and/or KV according to patient size, use of iterative reconstruction technique. Findings: No significant ventricular enlargement. Intra-axial or extra-axial hemorrhage density is not seen. No mass effect or midline shift Basal cisterns are not remarkable. Fourth ventricle is midline. Cranial vault intact. Soft tissue left posterior parietal scalp swelling Impression: Negative for acute hemorrhage, mass effect or midline shift
[2025-02-02 18:03] LABS: B-Type Natriuretic Peptide 42 pg/mL (0-100)
[2025-02-02 18:17] VITALS: BP 136/73; PULSE 63; RESP 20; TEMP 37.3; O2SAT 99
[2025-02-02 18:20] LABS: Alanine Aminotransferase 16 U/L (10-49); Albumin, Serum 4.1 gm/dL (3.4-4.8); Albumin/Globulin Ratio 1.5 (1.2-2.2); Alkaline Phosphatase 64 U/L (46-116); Anion Gap 8 (7-16); Aspartate Amino Transferase 23 U/L (0-34); BUN/Creatinine Ratio 11 Ratio (12-20); Bilirubin,Total 0.2 mg/dL (0.3-1.2); Blood Urea Nitrogen 11 mg/dL (9-23); Calcium 9.3 mg/dL (8.3-10.6); Calcium (Corrected) 9.3 mg/dL (8.5-10.1); Carbon Dioxide 26.8 mMol/L (20.0-31.0); Chloride 107 mMol/L (98-107); Estimated Creatinine Clearance 38.5 mL/min (>60); Globulin 2.7 gm/dL (2.3-3.5); Glucose 95 mg/dL (74-106); Osmolality,Calculated 282 (275-295); Potassium 4.4 mMol/L (3.4-5.1); Sodium 142 mMol/L (136-145); Total Protein 6.8 gm/dL (5.7-8.2); Troponin I < 0.020 ng/mL (0.0-0.045); eGFR 59 See Note
--- NOTE | 2025-02-02 18:51 | PD.EDSYNC ---
ED Syncope RME/HPI General Chief Complaint: Syncope / Near Syncope Stated Complaint: SYNCOPE Time Seen by Provider: 02/02/25 16:06 Source: patient and EMS Arrival date/time: 02/02/25 16:00 Limitations: no limitations RME / HPI RME / HPI narrative: Patient is a 74-year-old female who is here today after she had a syncopal related fall while visiting a friend. She did have a left frontal head strike. She had no loss of consciousness after the fall, she has no open wounds. She has no vision changes, nausea, or vomiting. Patient does have a primary cooker pie filling who is followed her in the past. She has had prior Holter monitoring ultrasounds that were negative. She has no history of CVA, ACS, or pulmonary emboli. She has no lower leg swelling. She has no chest pain or shortness of breath. She has no abdominal pain, nausea, vomiting. She has no other acute complaints. Related Data Home Medications ?Medication ?Instructions ?Recorded ?Confirmed atorvastatin 40 mg tablet 80 mg PO QDAY 11/24/20 08/02/24 levothyroxine 25 mcg capsule 50 mcg PO QDAY 01/18/23 08/02/24 omega-3 fatty acids-fish oil 684 1 cap PO BID 01/18/23 08/02/24 mg-1,200 mg capsule,delayed release cholecalciferol (vitamin D3) 25 25 mcg PO QDAY 01/19/23 08/02/24 mcg (1,000 unit) chewable tablet (Vitamin D3) cranberry fruit 1,000 mg capsule 1,200 mg PO QDAY 01/19/23 08/02/24 Previous Rx's ?Medication ?Instructions ?Recorded ciprofloxacin HCl 500 mg tablet 500 mg PO BID #14 tabs 12/07/24 (Cipro) dicyclomine 20 mg tablet 20 mg PO BID #20 tabs 12/07/24 metronidazole 500 mg tablet 500 mg PO BID #14 tabs 12/07/24 Allergies Allergy/AdvReac Type Severity Reaction Status Date / Time nitrofurantoin (From Allergy Severe Diarrhea Verified 02/02/25 16:11 Macrobid) Penicillins Allergy Severe HIVES Verified 02/02/25 16:11 Sulfa (Sulfonamide Allergy Severe ABD PAIN Verified 02/02/25 16:11 Antibiotics) Review of Systems Review of Systems Systems Reviewed: All systems reviewed, normal except as documented Past Medical History Past Medical History ENDOCRINE: Positive Hypothyroidism ED Exam General Limitations: Present no limitations General appearance: Present alert and in no apparent distress Head Head exam: Present atraumatic, normocephalic and normal inspection Eye Eye exam: Present normal appearance, PERRL and EOMI ENT ENT exam: Present normal exam, normal oropharynx and mucous membranes moist Neck Neck exam: Present normal inspection, full ROM and trachea midline Chest Chest inspection: Present normal inspection and symmetric chest wall rise Respiratory Respiratory exam: Present normal lung sounds bilaterally Cardiovascular Cardiovascular exam: Present regular rate, normal rhythm and normal heart sounds Abdominal Exam Abdominal exam: Present soft and normal bowel sounds Extremities Exam Extremities exam: Present normal inspection and full ROM Back Exam Back exam: Present normal inspection and full ROM Neurological Exam Neurological exam: Present alert, oriented X3 and CN II-XII intact Psychiatric Psychiatric exam: Present normal affect and normal mood Skin Skin exam: Present warm, dry, intact and normal color Course Quality Measures none Orders Category Date Time Status EKG (ED ONLY) *Do not use* NOW Care 02/02/25 16:[address] head/brain wo con Stat Exams 02/02/25 17:33 Completed EKG (ED Only) Stat Exams 02/02/25 16:06 Draft XR chest 1V Stat Exams 02/02/25 16:06 Completed BNP [B-Type Natriuretic Peptide] Stat Lab 02/02/25 16:31 Completed CBC Stat Lab 02/02/25 16:31 Completed CMP [Comprehensive Metabolic Panel] Stat Lab 02/02/25 17:45 Completed Magnesium Stat Lab 02/02/25 17:45 Completed Troponin I Stat Lab 02/02/25 17:45 Completed UA, C/S IF [Urinalysis, C/S if Indicated] Stat Lab 02/02/25 16:31 Completed Vital Signs Vital signs: Vital Signs Temperature 98.3 F 02/02/25 16:07 Pulse Rate 74 02/02/25 16:07 Respiratory Rate 20 02/02/25 16:07 Blood Pressure 136/83 H 02/02/25 16:07 Pulse Oximetry (%) 99 02/02/25 16:07 Oxygen Delivery Method Room Air 02/02/25 16:07 Syncope MDM Narrative MDM Narrative:: Patient send 4-year-old female who is visiting a friend today and had a single episode of with head strike. She has no chest pain no shortness of breath. No lower leg pain. No fevers or chills. She does have a primary cooker pie filling that follows her. She has no history of dysrhythmia, ACS, or thrombus. No history of ACS or stroke. Her CT of the head reveals no acute intracranial abnormality. Cardiac work appears essentially benign. She has had no dysrhythmia changes throughout the ER course. I do believe she discharged in the ER for outpatient follow-up. Patient states she will contact her cooker pie filling tomorrow to schedule close follow-up appointment. She may benefit from repeat Holter monitoring and echocardiogram. Patient agrees to return as needed for any worsening or emergent changes. Patient data External records reviewed:: Other (specify) Clinical information provided by:: patient and EMS Social determinants that could affect healthcare access:: none Patient has the following chronic illnesses:: Hypertension How is presenting disease/condition affected by chronic disease/condition?: no chronic disease Evaluation data The following diagnostics were reviewed and interpreted by me:: lab results (No leukocytosis, troponin is negative, no metabolic derangement), radiology exam(s) (No evidence of any cranial bleed or midline shift) and EKG tracing(s) (EKG obtained today at 1640 1 PM reveals normal sinus rhythm at [address] changes or dynamic T waves.) Lab and/or radiology exams considered but not ordered:: n/a Interpretation Summary: Workup essentially unremarkable. Medications / Prescriptions Medications or Prescriptions considered but not ordered:: n/a Medication administrations:: n/a Consultations Consultation(s) initiated? (list below): No Diagnosis Syncope Differential Diagnosis: vasovagal syncope, complete atrioventricular block and subarachnoid hemorrhage Most likely diagnosis given after review of the tests above:: n/a Admission Indicated Admission indicated?: not indicated Admission Request Was there a request for admission?: No Disposition Plan Disposition Plan: Discharge Discharge Attestation Discharge Attestation: The patient and all family members were given an opportunity to ask questions and understood the discharge instructions. Discharge instructions specifically effects, indications for sooner follow up or return to the emergency department, and the expected course of current diagnosis. Patient condition: Stable Discharge Plan Plan Patient Disposition: HOME (Self Care) Patient condition on transfer: Stable Prescriptions/Referrals Prescriptions/Med Rec: No Action atorvastatin 40 mg Tablet 80 mg PO QDAY omega-3 fatty acids-fish oil 570-4,683 mg Capsule,Delayed Release(Dr/Ec) 1 cap PO BID levothyroxine 25 mcg Capsule 50 mcg PO QDAY cranberry fruit 1,000 mg Capsule 1,200 mg PO QDAY Rx Instructions: administer with meals cholecalciferol (vitamin D3) [Vitamin D3] 25 mcg (1,000 unit) Tablet,Chewable 25 mcg PO QDAY ciprofloxacin HCl [Cipro] 500 mg tablet 500 mg PO BID Qty: 14 0RF metronidazole 500 mg tablet 500 mg PO BID Qty: 14 0RF dicyclomine 20 mg tablet 20 mg PO BID Qty: 20 0RF Referrals: Esther Cha PA-C [Primary Care Provider] - In 1 week Problem List Clinical Impression: Vasovagal syncope Patient/Caregiver Discharge Instructions Education Materials: What Is Syncope? Additional Instructions: Your workup here is unremarkable. It is important that you follow-up closely with your cooker pie filling to consider outpatient workup. Please return anytime for any worsening or emergent changes. Print Language: Czech Stand Alone Forms: [employer] Award Info., Patient Portal Info Letter
[2025-02-02 19:17] VITALS: BP 127/68; PULSE 64; RESP 18; TEMP 36.6; O2SAT 99
== END 2025-02-02 19:18 | disposition home or self-care (01) ==
PROVIDERS: Physician Assistant Medical; Emergency Provider Family Medicine; PCP Physician Assistant Medical
DX: R55 Syncope and collapse (principal); R22.0 Localized swelling, mass and lump, head
CPT/HCPCS: 36415; 70450; 71045; 80053; 81001; 83735; 83880; 84484; 85025; 93005; 99284

== ENCOUNTER 2025-02-09 11:50 | Day surgery (SDC) | payer MEDICARE, MEDICAID, SELFPAY ==
[2025-02-06 12:06] LABS: Basophils # (Auto) 0.1 Thou/mm3 (0.0-0.2); Basophils % (Auto) 1 % (0-2.5); Eosinophils # (Auto) 1.7 Thou/mm3 (0.0-0.5); Eosinophils % (Auto) 15 % (0-10); Hematocrit 40.1 % (36.0-46.0); Hemoglobin 13.7 g/dL (12.0-16.0); Immature Granulocytes % (Auto) 0 % (0-0); Immature Granulocytes Auto 0.04 Thou/mm3 (0.00-0.00); Lymphocytes # (Auto) 2.5 Thou/mm3 (1.0-4.8); Lymphocytes % (Auto) 23 % (10-50); Mean Corpuscular HGB Conc 34.2 g/dl (31.0-37.0); Mean Corpuscular Hemoglobin 30.9 pg (25.0-35.0); Mean Corpuscular Volume 90 fL (80-100); Monocytes # (Auto) 0.6 Thou/mm3 (0.0-0.8); Monocytes % (Auto) 5 % (0-12); Neutrophils # (Auto) 6.2 Thou/mm3 (1.8-7.7); Neutrophils % (Auto) 56 % (37-80); Nucleated Red Blood Cell % 0 /100 WBC (0); Platelet Count 232 Thou/mm3 (140-440); RDW Standard Deviation 46.6 fL (36.4-46.3); Red Blood Count 4.44 Miln/mm3 (4.00-5.20); White Blood Count 11.1 Thou/mm3 (3.6-11.0)
[2025-02-06 12:12] LABS: Partial Thromboplastin Time 27.3 Seconds (22.0-36.0); Prothrombin Time 10.6 Seconds (9.0-12.2)
[2025-02-06 12:14] LABS: Alanine Aminotransferase 13 U/L (10-49); Albumin, Serum 4.2 gm/dL (3.4-4.8); Albumin/Globulin Ratio 1.6 (1.2-2.2); Alkaline Phosphatase 60 U/L (46-116); Anion Gap 4 (7-16); Aspartate Amino Transferase 19 U/L (0-34); BUN/Creatinine Ratio 12 Ratio (12-20); Bilirubin,Total 0.4 mg/dL (0.3-1.2); Blood Urea Nitrogen 12 mg/dL (9-23); Calcium 9.6 mg/dL (8.3-10.6); Calcium (Corrected) 9.6 mg/dL (8.5-10.1); Carbon Dioxide 30.2 mMol/L (20.0-31.0); Chloride 107 mMol/L (98-107); Globulin 2.7 gm/dL (2.3-3.5); Glucose 96 mg/dL (74-106); Osmolality,Calculated 280 (275-295); Potassium 4.9 mMol/L (3.4-5.1); Sodium 141 mMol/L (136-145); Total Protein 6.9 gm/dL (5.7-8.2); eGFR 59 See Note
[2025-02-09] VITALS (7 sets, daily range): BP systolic 91–155; BP diastolic 44–75; PULSE 61–79; RESP 13–20; TEMP 36.3–36.5; O2SAT 94–100; BMI 26.2
[2025-02-09] MEDS: RINGERS LACTATED 1000 ML 1,000 ML 20 ML IV (13:38)
--- NOTE | 2025-02-09 14:00 | SUR.PHASEII ---
1400: Pt. AAOx4, vitals stable, breathing unlabored, no complaint of pain or nausea, no dressing in place, no active bleed noted, report received from Kayla SHAH and MD Yeung.
--- NOTE | 2025-02-09 14:40 | SUR.PHASEII ---
1440: Pt. AAOx4, vitals stable, breathing unlabored, no complaint of pain or nausea, no dressing in place, no active bleed noted, pt. tolerated sips of juice well, pt. passed flatus, gave discharge instructions to the pt. and her ride, both verbalized understanding and had no further questions. Pt. left with all personal belongings.
== END 2025-02-09 14:40 | disposition home or self-care (01) ==
PROVIDERS: Anesthesiology; PCP Physician Assistant Medical; Referring Provider Surgery; Visit Provider Surgery
PROC: 0DJD8ZZ Inspection of Lower Intestinal Tract, Via Natural or Artificial Opening Endoscopic (ICD-10-PCS; CPT 45378; principal; 2025-02-09 13:45)
DX: K57.30 Diverticulosis of large intestine without perforation or abscess without bleeding (principal)
CPT/HCPCS: 45378; 36415; 80053; 85025; 85610; 85730; J7120

== ENCOUNTER → 2025-04-10 | Outpatient (CLI) | payer MEDICARE, MEDICAID, SELFPAY ==
--- NOTE | 2025-04-10 16:00 | XR_ITS ---
Examination: CT chest, without intravenous contrast. Sagittal and coronal 2-D reconstructions. Exam date and time: April 10, 2025, 1619 hours, comparison August 03, 2024: Nicotine dependence, smoking history 35 years, low dose CT scanning from lung cancer CTDI:vol (mGy) 11.9 DLP: (mGycm) 362 Technique: Multiple 3.0 mm axial sections of the chest to been obtained. Bone and lung density settings are obtained. Sagittal and coronal 2-D reconstructions have been obtained. Low dose protocols were performed. One or more of the following dose reduction techniques were used; automated exposure control, adjustment of the mA and/or KV according to patient size, use of iterative reconstruction technique. Findings: Thoracic aortic calcification no aneurysmal dilatation Pulmonary artery segments are not enlarged Heavy calcification left main left circumflex coronary arteries No paratracheal tracheobronchial or bronchopulmonary adenopathy 3 mm pulmonary nodule right upper lobe image 48 2 mm pulmonary nodule right upper lobe image 50 2 mm pulmonary nodule right upper lobe image 44 3 mm pulmonary nodule right upper lobe image 71 No pneumonia pulmonary edema or pleural disease No visualized liver or splenic lesion No gallstones No pancreatic mass Nodular thickening both adrenal glands Kidneys partially visualized no hydronephrosis Moderate osteopenia IMPRESSION: Multiple subcentimeter pulmonary nodules right upper lobe, with this study as baseline recommend continued 6 month follow-up CT chest without contrast
== END | disposition home or self-care (01) ==
LOC: CCTX 15:39
PROVIDERS: PCP Physician Assistant Medical; Referring Provider Physician Assistant Medical; Visit Provider Physician Assistant Medical
DX: Z12.2 Encounter for screening for malignant neoplasm of respiratory organs (principal); R91.8 Other nonspecific abnormal finding of lung field
CPT/HCPCS: 71271

== ENCOUNTER → 2025-07-20 | Outpatient (CLI) | payer MEDICARE, MEDICAID, SELFPAY ==
--- NOTE | 2025-07-20 | XR_ITS ---
Examination: Diagnostic digital mammography, bilateral Computer aided detection 3-D breast Tomosynthesis, bilateral Date and time of exam: July 20, 2025, 1626 hours INDICATIONS: Mammogram April 03, 2024 10:00 left breast focal asymmetry Technique: Nonmagnified MLO, CC views of the breasts to been obtained, reconstructed from 3-D Tomosynthesis images. R2 computer aided detection program utilized for evaluation of suspicious masses and/or abnormal calcifications. 3-D Tomosynthesis images obtained. Findings: Scattered areas of fibroglandular density Stable nodule upper outer right breast Better defined 8 mm nodule nipple level left breast CC view, 7.9 cm from the nipple, breast sonogram today demonstrates circumscribed nodules 8:00, 10:00 left breast Impression: BI-RADS Category 3: Probably benign findings 1 additional 6-month left mammogram follow-up is needed.
--- NOTE | 2025-07-20 14:45 | XR_ITS ---
Examination: Breast ultrasound, unilateral, left complete Date and time of exam: July 20, 2025, 1514 hours INDICATIONS: Left breast sonogram January 09, 2025 2:00 lipomatous nodule 9 x 9 mm Technique: Real-time foster scale ultrasonographic imaging performed left breast including all 4 quadrants as well as nipple retroareolar and axillary region. Findings: Benign cyst, 2:00 hypoechoic nodule 10 x 8 mm 8:00 hypoechoic nodule 11 x 10 mm 10:00 hypoechoic nodule 10 x 9 mm Smaller cysts IMPRESSION: BI-RADS Category 3: Probably benign findings 1 additional 6-month left breast sonogram follow-up needed to document stability of multiple nodules described above
== END | disposition home or self-care (01) ==
PROVIDERS: Referring Provider Physician Assistant Medical; Visit Provider Physician Assistant Medical
DX: R92.333 Mammographic heterogeneous density, bilateral breasts (principal); N63.21 Unspecified lump in the left breast, upper outer quadrant; N63.24 Unspecified lump in the left breast, lower inner quadrant; N63.22 Unspecified lump in the left breast, upper inner quadrant
CPT/HCPCS: 76641; 77062; 77066; G0279